=== PATIENT | female | born 1965 | race Caucasian/White ===

== ENCOUNTER 2020-10-06 07:17 | Outpatient (REF) | payer MEDICARE, MEDICAID, SELFPAY ==
[2020-10-06 09:10] LABS: Alanine Aminotransferase 46 U/L (0-31); Albumin Level 4.3 g/dL (3.5-5.0); Alkaline Phosphatase 88 U/L (39-117); Anion Gap 15 (12-20); Aspartate Amino Transferase 37 U/L (5-31); Bilirubin Total 0.7 mg/dL (0.0-1.0); Blood Urea Nitrogen 10 mg/dL (9-16); Calcium 9.8 mg/dL (8.4-10.2); Carbon Dioxide 28 mmol/L (22-29); Chloride 100 mmol/L (96-108); Cholesterol 244 mg/dL; Estimated Glomerular Filt Rate > 60; Glucose Fasting 125 mg/dL (60-99); HDL Cholesterol 41 mg/dL; LDL Cholesterol Calculated 157 mg/dl; Potassium 3.8 mmol/L (3.3-5.1); Sodium 139 mmol/L (135-145); Total Protein 7.7 g/dL (6.5-8.0); Triglycerides 231 mg/dL
[2020-10-09 21:42] LABS: Vitamin D 25-OH, D2 18 ng/mL; Vitamin D 25-OH, D3 9 ng/mL; Vitamin D 25-OH, Total 27 ng/mL (30-100)
== END 2020-10-06 07:18 | disposition home or self-care (01) ==
LOC: HO.LAB 07:17
PROVIDERS: PCP Internal Medicine; Visit Provider Internal Medicine
DX: I10 Essential (primary) hypertension (principal); E55.9 Vitamin D deficiency, unspecified
CPT/HCPCS: 36415; 80053; 80061; 82306

== ENCOUNTER 2020-10-16 10:01 | Outpatient (REF) | payer MEDICARE, MEDICAID, SELFPAY ==
--- NOTE | ~2020-10-16 | XR_ITS ---
EXAMINATION: XR SHOULDER, LEFT XR ELBOW, LEFT XR WRIST, LEFT CLINICAL INFORMATION: Pain. COMPARISON: None TECHNIQUE: Three-view left elbow, 3-view left wrist, and 4-view left shoulder. FINDINGS: LEFT SHOULDER: There is no evidence of acute fracture or dislocation of the left shoulder. No calcific tendinitis. Glenohumeral joint appears unremarkable. Acromioclavicular joint appears unremarkable. No widening of the coracoclavicular space is seen. LEFT ELBOW: 3 views of the left elbow do not demonstrate any evidence of acute fracture or dislocation. Joint space is maintained. No elbow effusion is seen. No destructive bony lesions. There is some soft tissue swelling seen overlying the olecranon. There is a small amount of calcification seen about the lateral epicondyle. LEFT WRIST: 3 views of the left wrist do not demonstrate any evidence of acute fracture or dislocation. There is some degenerative narrowing of the triscaphe joint as well some mild spurring of the 1st carpometacarpal joint. There is negative ulnar variance. XR/XR elbow LT 2V IMPRESSION: No significant left shoulder abnormality appreciated. Calcific lateral epicondylitis. No left elbow effusion. Question olecranon bursitis. Left wrist: Mild degenerative change as described above involving the triscaphe joint and 1st carpometacarpal joint. Negative ulnar variance.
--- NOTE | ~2020-10-16 | US_ITS ---
EXAMINATION: US VENOUS ULTRASOUND WITH DOPPLER LOWER EXTREMITY, BILATERAL CLINICAL INFORMATION: Fusion right ankle COMPARISON: None TECHNIQUE: Ultrasound of the deep veins is performed from the hip to the calf with compression sonography and color and pulse Doppler assessment. Spectral analysis with color-flow imaging is performed. FINDINGS: RIGHT: There is normal venous compression and respiratory variation and augmented flow. The visualized common femoral vein, superficial femoral vein, profunda femoral vein, popliteal vein, and the trifurcation region shows no evidence of deep venous thrombosis. There is no significant popliteal fossa cyst. LEFT: There is normal venous compression and respiratory variation and augmented flow. The visualized common femoral vein, superficial femoral vein, profunda femoral vein, popliteal vein, and the trifurcation region shows no evidence of deep venous thrombosis. There is no significant popliteal fossa cyst. There is small small left groin left lymph node visualized measuring 1.8 x 0.7 x 1.1 cm and appears benign If the patient's symptoms persist, followup ultrasound in 5 days 7 days might be of value to exclude proximal propagation from a non-visualized calf vein. US/US venous duplex LE BI IMPRESSION: No DVT demonstrated in the bilateral lower extremity.
--- NOTE | ~2020-10-16 | XR_ITS ---
EXAMINATION: XR SHOULDER, LEFT XR ELBOW, LEFT XR WRIST, LEFT CLINICAL INFORMATION: Pain. COMPARISON: None TECHNIQUE: Three-view left elbow, 3-view left wrist, and 4-view left shoulder. FINDINGS: LEFT SHOULDER: There is no evidence of acute fracture or dislocation of the left shoulder. No calcific tendinitis. Glenohumeral joint appears unremarkable. Acromioclavicular joint appears unremarkable. No widening of the coracoclavicular space is seen. LEFT ELBOW: 3 views of the left elbow do not demonstrate any evidence of acute fracture or dislocation. Joint space is maintained. No elbow effusion is seen. No destructive bony lesions. There is some soft tissue swelling seen overlying the olecranon. There is a small amount of calcification seen about the lateral epicondyle. LEFT WRIST: 3 views of the left wrist do not demonstrate any evidence of acute fracture or dislocation. There is some degenerative narrowing of the triscaphe joint as well some mild spurring of the 1st carpometacarpal joint. There is negative ulnar variance. XR/XR shoulder LT min 2V IMPRESSION: No significant left shoulder abnormality appreciated. Calcific lateral epicondylitis. No left elbow effusion. Question olecranon bursitis. Left wrist: Mild degenerative change as described above involving the triscaphe joint and 1st carpometacarpal joint. Negative ulnar variance.
--- NOTE | ~2020-10-16 | XR_ITS ---
EXAMINATION: XR SHOULDER, LEFT XR ELBOW, LEFT XR WRIST, LEFT CLINICAL INFORMATION: Pain. COMPARISON: None TECHNIQUE: Three-view left elbow, 3-view left wrist, and 4-view left shoulder. FINDINGS: LEFT SHOULDER: There is no evidence of acute fracture or dislocation of the left shoulder. No calcific tendinitis. Glenohumeral joint appears unremarkable. Acromioclavicular joint appears unremarkable. No widening of the coracoclavicular space is seen. LEFT ELBOW: 3 views of the left elbow do not demonstrate any evidence of acute fracture or dislocation. Joint space is maintained. No elbow effusion is seen. No destructive bony lesions. There is some soft tissue swelling seen overlying the olecranon. There is a small amount of calcification seen about the lateral epicondyle. LEFT WRIST: 3 views of the left wrist do not demonstrate any evidence of acute fracture or dislocation. There is some degenerative narrowing of the triscaphe joint as well some mild spurring of the 1st carpometacarpal joint. There is negative ulnar variance. XR/XR wrist LT 2V IMPRESSION: No significant left shoulder abnormality appreciated. Calcific lateral epicondylitis. No left elbow effusion. Question olecranon bursitis. Left wrist: Mild degenerative change as described above involving the triscaphe joint and 1st carpometacarpal joint. Negative ulnar variance.
== END 2020-10-16 10:02 | disposition home or self-care (01) ==
LOC: HO.US 10:01
PROVIDERS: PCP Internal Medicine; Visit Provider Nurse Practitioner Family
DX: M25.512 Pain in left shoulder (principal); M25.522 Pain in left elbow; M25.532 Pain in left wrist; M25.471 Effusion, right ankle; M25.472 Effusion, left ankle; M79.604 Pain in right leg; M79.605 Pain in left leg
CPT/HCPCS: 73030; 73070; 73100; 93970

== ENCOUNTER 2023-06-15 08:00 | Outpatient (REF) | payer MEDICARE, MEDICAID, SELFPAY ==
[2023-06-15 08:09] LABS: MANUAL DIFF FLAG NO
[2023-06-15 08:14] LABS: Basophils Absolute Auto 0.1 X10*3/uL (0.0-0.2); Basophils Percent Auto 1.3 % (0-2); Eosinophils Absolute Auto 0.2 X10*3/uL (0.0-0.4); Eosinophils Percent Auto 2.7 % (0-4); Hematocrit 47.3 % (37.0-47.0); Hemoglobin 16.6 g/dl (12.0-16.0); Imm Gran Abs Auto 0.04 X10*3/uL (0.00-0.03); Imm Gran Pct Auto 0.6 % (0.0-0.4); Lymphocytes Absolute Auto 2.7 X10*3/uL (1.2-4.9); Lymphocytes Percent Auto 39.1 % (20-40); Mean Corpuscular HGB Conc 35.1 g/dl (31.0-35.0); Mean Corpuscular Hemoglobin 32.6 pg (27.0-33.0); Mean Corpuscular Volume 92.9 fL (80.0-98.0); Mean Platelet Volume 10.9 fL (9.4-12.3); Monocytes Absolute Auto 0.5 X10*3/uL (0.1-1.2); Monocytes Percent Auto 7.7 % (2-11); Neutrophils Absolute Auto 3.3 x10*3/uL (2.0-8.3); Neutrophils Percent Auto 48.6 % (45-73); Platelet Count 255 X10*3/uL (160-400); Red Blood Count 5.09 X10*6/uL (4.20-5.50); Red Cell Distribution Width 12.3 % (11.0-16.0); White Blood Count 6.8 X10*3/uL (4.8-10.8)
[2023-06-15 09:12] LABS: Alanine Aminotransferase 275 U/L (0-31); Albumin Level 4.1 g/dL (3.5-5.0); Alkaline Phosphatase 137 U/L (39-117); Anion Gap 11 (12-20); Aspartate Amino Transferase 218 U/L (5-31); Bilirubin Total 0.9 mg/dL (0.0-1.0); Blood Urea Nitrogen 9 mg/dL (9-16); Calcium 10.1 mg/dL (8.4-10.2); Carbon Dioxide 32 mmol/L (22-29); Chloride 97 mmol/L (96-108); Cholesterol 286 mg/dL (<200); Estimated Glomerular Filt Rate > 60; Glucose Fasting 173 mg/dL (60-99); HDL Cholesterol 50 mg/dL (>40); LDL Cholesterol Calculated 197 mg/dL (<100); Potassium 3.3 mmol/L (3.3-5.1); Sodium 137 mmol/L (135-145); Total Protein 8.4 g/dL (6.5-8.0); Triglycerides 198 mg/dL (<150)
[2023-06-15 09:26] LABS: Thyroid Stimulating Hormone 1.59 uIU/mL (0.32-4.0)
== END 2023-06-15 08:01 | disposition home or self-care (01) ==
LOC: HO.LAB 08:00
PROVIDERS: PCP Internal Medicine; Visit Provider Internal Medicine
DX: E78.5 Hyperlipidemia, unspecified (principal); E55.9 Vitamin D deficiency, unspecified; E66.9 Obesity, unspecified; Z86.39 Personal history of other endocrine, nutritional and metabolic disease
CPT/HCPCS: 36415; 80053; 80061; 82306; 84443; 85025

== ENCOUNTER 2023-06-16 10:47 | Outpatient (AMB) | payer MEDICARE, MEDICAID, SELFPAY ==
[2023-06-16 10:49] VITALS: BP 148/92; BMI 38.8
--- NOTE | 2023-06-16 10:49 | A.OFFPC_ITS ---
Vital Signs 06/16/23 10:49 06/16/23 12:23 Height 5 ft 3 in Weight 219 lb BMI 38.8 BP 148/92 H 140/90 H Blood Pressure Location Lt brachial Lt brachial Position Sitting Sitting Intake Visit Reasons: physical exam, labs Intake Note: Patient here for a physical exam, labs, right hand pins and needle feeling, knee pain Motor Man Required: No Accompanied by: Self / Same As Patient Allergies acetaminophen [Percocet] Allergy (Intermediate, Verified 06/16/23 11:03) vomiting nabumetone Allergy (Intermediate, Verified 06/16/23 11:03) shortness of breath oxycodone [Percocet] Allergy (Intermediate, Verified 06/16/23 11:03) vomiting Medication List - Last Reconciled 06/16/23 by Nelia Schmitt MD atenolol-chlorthalidone 50-25 mg 1 tab PO DAILY 90 days cholecalciferol (vitamin D3) 25 mcg PO DAILY 90 days Tobacco use date assessed: 06/16/23 Dental Screening Dental Screen Date: 06/16/23 Did you have a dental visit in the last 12 months?: Yes Did you have a dental problem in the last 6 months where you did not have access to dental care?: No Was dental information given to patient?: Patient has dentist HPI HPI Comments History of Present Illness Details This is a 57-year-old female with mild recurrent major depression that comes for her physical exam. She had labs done recently and has an elevated hemoglobin with transaminitis in which ultrasound will be order as well as Gastroenterology referral. Has elevated cholesterol and her fasting blood glucose is over 126 with an A1c of 8% making the diagnosis of diabetes mellitus. I will start her on metformin. I will hold to give statins as of now due to transaminitis. She denies any jaundice, acholia or coluria. She is obese with a BMI of 38.8 but declines the use of protein shakes to lose weight. Last mammogram was over a year ago. Last Pap smear was over 4 years ago. Had Cologuard 2020 and I will order another Cologuard 2023. She has counseling for her mild recurrent major depression and declines any medications as of now. [facility] Medical History (Updated 06/16/23 @ 12:28 by Nelia Schmitt MD) Impaired glucose tolerance Mild recurrent major depression Class 2 obesity with body mass index (BMI) of 38.0 to 38.9 in adult Leg pain, bilateral Left wrist pain Left shoulder pain Left elbow pain Swollen ankles Right knee pain Hypovitaminosis D Essential hypertension Surgical History History of hysteroscopy History of laparoscopic cholecystectomy Family History Father Medical history unknown Mother Diabetes Hypertension Chronic mental illness Mental health disorder Maternal Grandmother Throat cancer Maternal Aunt Chronic mental illness Mental health disorder Family/Other Chronic mental illness Mental health disorder Social History Housing: House Alcohol intake: current Alcohol intake frequency: holidays/special occasions only Patient Tobacco Use Status: Never used Tobacco e-Cigarette/Vaping Use: Never Used Second Hand Smoke Exposure: No service: No Current occupational status: disabled Cognitive needs: No Hearing needs: No Vision needs: No Questionnaire PHQ-9 Over the last 2 weeks, how often have you been bothered by any of the following problems? 1. Little interest or pleasure in doing things: more than half the days 2. Feeling down, depressed, or hopeless: more than half the days 3. Trouble falling or staying asleep, or sleeping too much: nearly every day 4. Feeling tired or having little energy: more than half the days 5. Poor appetite or overeating: several days 6. Feeling bad about yourself - or that you are a failure or have let yourself or your family down: several days 7. Trouble concentrating on things, such as reading the newspaper or watching television: several days 8. Moving or speaking so slowly that other people could have noticed. Or the opposite - being so fidgety or restless that you have been moving around a lot more than usual: more than half the days 9. Thoughts that you would be better off or of hurting yourself in some way: not at all Total score: 14 Depression Screening Interpretation: Positive (no suicidal thoughts) Depression Screening Follow-up: Existing condition and Community Mental Health Worker F/U Depression Screening Done: Yes Source: Developed by Drs. Guanakito Lamar, Rachel Feliberto Cohen and colleagues, with an educational rosemary from [employer]. Thrive Questionnaire Date Thrive assessed: 06/16/23 I am a: Patient What is your living situation today?: I have a steady place to live Within the past 12 months, did the food you bought not last and you didn't have the money to get more?: Never true Within the past 12 months, did you worry whether your food would run out before you got money to buy more?: Never true Do you have trouble paying for medicines?: No Do you have trouble getting transportation to medical appointments?: No Do you have trouble paying your heating and electricity bill?: No Do you have trouble taking care of your child, family member or friend?: No Do you have trouble with day-to-day activities such as bathing, preparing meals, shopping, managing finances, etc.?: No Are you currently unemployed and looking for a job?: No Are you interested in more education?: No Please select the resources that you would like help with: None Currently or been in a relationship where the following occur: no concerns reported THRIVE Score: 0 AUDIT C Alcohol Use Questionnaire (AUDIT-C) 1. How often do you have a drink containing alcohol?: Never Total Score: 0 Score Reviewed/Action Taken: No MARY-7 AMB Questionnaire MARY-7 Date MARY - 7 assessed: 06/16/23 Feeling nervous, anxious, or on edge: 2 = More than half the days Not being able to stop or control worryin = Several days Worrying too much about different things: 2 = More than half the days Trouble relaxin = Several days Being so restless that it is hard to sit still: 0 = Not at all Becoming easily annoyed or irritable: 2 = More than half the days Feeling afraid as if something awful might happen: 0 = Not at all Total MARY-7 score (0-4 normal; 5-9 mild; 10-14 moderate; 15-21 severe): 8 Source: Developed by Drs. Guanakito Lamar, Feliberto Roper and colleagues, with an educational rosemary from [employer]. MARY-7 Assessment Billing MARY-7 Assessment Tool: MARY-7 Assessment 71457 Review of Systems Const All systems reviewed & are unremarkable except as noted in HPI and below Eyes Reports no additional complaints, Denies change in vision and Denies other visual disturbances Card Denies chest pain at rest, Denies chest pain with activity, Denies edema, Denies irregular heart rhythm, Denies claudication, Denies dyspnea, Denies dyspnea on exertion, Denies orthopnea, Denies paroxysmal nocturnal dyspnea and Denies slow heart rate Resp Denies cough, Denies dyspnea and Denies dyspnea on exertion GI Denies abdominal pain, Denies change in bowel habits, Denies excessive flatus, Denies nausea and Denies vomiting Denies urinary incontinence, Denies urinary hesitancy and Denies urinary urgency Musc Denies abnormal gait, Denies atrophy, Denies deformity and Denies limited range of motion Skin/Breast Denies bleeding lesions, Denies changing lesions and Denies rash Neuro Denies abnormal gait, Denies behavioral changes, Denies confusion and Denies lack of coordination Psych Denies behavioral changes and Denies confusion Physical exam (Primary Care) Vital Signs: Last Vital Signs BP 148/92 H 06/16/23 10:49 BMI result Body Mass Index 38.8 Tobacco/Smoking Status: Tobacco use Status Tobacco use date assessed 06/16/23 06/16/23 10:55 Patient Tobacco Use Status Never used Tobacco 06/16/23 10:55 e-Cigarette/Vaping Use Never Used 06/16/23 10:55 PHQ-9: PHQ-9 Score PHQ-9: Total score 14 06/16/23 11:10 Depression Screening Interpretation: Positive (no suicidal thoughts) Depression Screening Follow-up: Existing condition and Community Mental Health Worker F/U Thrive Assessment: Date of Thrive Assessment Date Thrive assessed 06/16/23 06/16/23 11:11 Currently or been in a relationship where the following occur: no concerns reported Const General: No confusion Orientation/consciousness: patient oriented x3 and No confusion HENMT Head: Yes normal to inspection, Yes normocephalic and Yes atraumatic Ears: external ears normal Eyes General: appearance normal, both eyes and all related structures Eyelids: Yes eyelids normal Conjunctivae: conjunctivae normal Neck Neck: Yes normal visual inspection and Yes supple Resp Effort & Inspection: normal respiratory effort Auscultation: clear to auscultation bilaterally Cardio Jugular venous distension: no JVD Rate: regular rate Rhythm: regular rhythm Heart sounds: S1 normal heart sound present and S2 normal heart sound present GI Inspection: Yes normal to inspection Palpation (GI): Soft to palpation and nontender Auscultation: normal bowel sounds Skin General skin exam: no rashes or lesions noted Neuro General: patient oriented x3, no focal motor deficits and No confusion Extrem General: Yes full ROM Psych Appearance: grossly normal Results AMB Hemoglobin A1c AMB Hemoglobin A1c 8.0 % Last Edit by SHOAIB De Santiago on 06/16/23 11:2 0 Results Reviewed Results Reviewed: Laboratory Last Values Hgb A1c (Clinic) 8.0 % (4.0-6.0) H 06/16/23 11:14 Assessment and Plan Assessment & Plan (1) Physical exam: Code(s): Z00.00 - Encounter for general adult medical examination without abnormal findings Plan: Repeat in a year. (2) Diabetes mellitus: Code(s): E11.9 - Type 2 diabetes mellitus without complications Qualifiers: Diabetes mellitus type: type 2 Diabetes mellitus mcfp insulin use: without termite control servicer use Diabetes mellitus complication status: with hyperglycemia Qualified Code(s): E11.65 - Type 2 diabetes mellitus with hyperglycemia Plan: Start metformin. A1c goal is equal or less than 7%. (3) Elevated hemoglobin: Code(s): D58.2 - Other hemoglobinopathies Plan: Repeat CBC. (4) Mild recurrent major depression: Code(s): F33.0 - Major depressive disorder, recurrent, mild Plan: Continue counseling. Orders: Orders US abdomen comp w elastography Today R74.01 - Elevation of levels of liver transaminase levels AMB Hemoglobin A1c Today R73.02 - Impaired glucose tolerance (oral) NE nerve conduction velocity Today R20.2 - Paresthesia of skin IRON PROFILE 1 Week D58.2 - Other hemoglobinopathies Lipid Panel 4 Months E78.5 - Hyperlipidemia, unspecified Comprehensive [place]. Panel Fast 4 Months R73.02 - Impaired glucose tolerance (oral) DNA Analysis Hemochromatosis Today D58.2 - Other hemoglobinopathies Liver Panel Today R74.01 - Elevation of levels of liver transaminase levels Referrals Gastroenterology Referral R74.01 - Elevation of levels of liver transaminase levels Medications: New metformin 500 mg PO BID 90 days 180 tabs 1RF E11.9 - Type 2 diabetes mellitus without complications Coding Level of Care Code Est Pt Prev Care 40-64y(32754) Diagnoses Physical exam Z00.00 Type 2 diabetes mellitus with hyperglycemia, without long-term current use of insulin E11.65 Diabetes mellitus type: type 2 Diabetes mellitus termite control servicer insulin use: without termite control servicer use Diabetes mellitus complication status: with hyperglycemia Elevated hemoglobin D58.2 Mild recurrent major depression F33.0 Additional Codes MARY-7 Assessment Billing - MARY-7 Assessment Tool: MARY-7 Assessment [id number] ([id number]) Time Spent (min) 35
[2023-06-16 12:23] VITALS: BP 140/90
== END 2023-06-16 11:24 | disposition home or self-care (01) ==
PROVIDERS: PCP Internal Medicine; Visit Provider Internal Medicine
DX: Z00.00 Encounter for general adult medical examination without abnormal findings (principal); E11.65 Type 2 diabetes mellitus with hyperglycemia; D58.2 Other hemoglobinopathies; F33.0 Major depressive disorder, recurrent, mild; R73.02 Impaired glucose tolerance (oral)
CPT/HCPCS: 83036; 99396

== ENCOUNTER 2023-07-11 09:00 | Outpatient (REF) | payer MEDICARE, MEDICAID, SELFPAY ==
--- NOTE | ~2023-07-11 | US_ITS ---
EXAMINATION: US COMPLETE ABDOMEN WITH LIVER ELASTOGRAPHY CLINICAL INFORMATION: Evaluation of liver transaminase levels. COMPARISON: None available. TECHNIQUE: Real-time imaging of the abdominal viscera. Noninvasive ultrasound liver fibrosis assessment is performed using Isi ElastPQ point quantification shear wave elastography (2D-SWE) with a C5-2 MHz transducer. Multiple elastography samples are obtained. FINDINGS: PANCREAS: Normal. The visualized pancreatic head and body are normal in appearance. The remainder of the pancreas is obscured from visualization by the overlying bowel gas. ABDOMINAL AORTA: The proximal, middle, and distal aortic segments are normal in caliber. INFERIOR VENA CAVA: Visualized portions are normal. LIVER: The liver demonstrates normal size, contour and increased echogenicity. No focal lesion or intrahepatic biliary duct dilatation. The right lobe measures 16.8 cm in length. The left lobe measures 13.1 cm in length. Portal flow is hepatopedal. Shear wave liver elastography median stiffness is 2.40 m/s (reference: normal median stiffness is 1.3 m/s or less). IQR/median stiffness to assess sampling precision is 0.15 (reference: good quality data set is IQR/median stiffness of 0.15 or less). GALLBLADDER: The gallbladder is surgically absent. COMMON BILE DUCT: Normal in caliber measuring 0.2/0.5 cm in diameter. RIGHT KIDNEY: Normal. No hydronephrosis. No renal calculi or focal parenchymal lesions. The kidney measures 11.8 cm in maximum dimension. LEFT KIDNEY: Normal. No hydronephrosis. No renal calculi or focal parenchymal lesions. The kidney measures 11.4 cm in maximum dimension. SPLEEN: Normal. The spleen measures 9.2 cm in maximum dimension. FREE FLUID: None. US/US abdomen comp w elastography IMPRESSION: 1. Mild hepatic steatosis without focal lesion. 2. Liver elastography: Median liver stiffness measures 2.40 cm suggestive of CSPH. . REFERENCE: Society of Radiologists in Ultrasound Liver Stiffness Thresholds (2020): LIVER STIFFNESS THRESHOLDS: *Liver Stiffness equal or less than 1.3 m/s: High probability of being normal. *Liver Stiffness less than 1.7 m/s: In the absence of other known clinical signs, rules out compensated advanced chronic liver disease. *Liver Stiffness 1.7-2.1 m/s: Suggestive of compensated advanced chronic liver disease but need further test for confirmation. *Liver Stiffness over 2.1 m/s: Rules in compensated advanced chronic liver disease. *Liver Stiffness over 2.4 m/s: Suggestive of clinically significant portal hypertension. QUALITY OF DATA SET: *IQR/Median value equal or less than 0.15 implies a quality data set. *IQR/Median value over 0.15 implies a poor quality data set. SIGNIFICANT CHANGE FROM PRIOR EXAM: Significant change if liver stiffness measurement is 10% or greater from prior exam. OTHER CONSIDERATIONS: The stage of liver fibrosis may be overestimated in the setting of acute hepatitis, liver inflammation, elevated liver function tests, hepatic vascular congestion, obstructive cholestasis, non-fasting state, and infiltrative diseases such as amyloidosis and lymphoma. In some patients with NAFLD, the liver stiffness thresholds for compensated advanced chronic liver disease may be lower. In causes other than viral hepatitis and NAFLD, liver stiffness thresholds are not well established.
== END 2023-07-11 09:01 | disposition home or self-care (01) ==
LOC: HO.US 09:00
PROVIDERS: PCP Internal Medicine; Visit Provider Internal Medicine
DX: R74.01 Elevation of levels of liver transaminase levels (principal)
CPT/HCPCS: 76700; 76981

== ENCOUNTER 2023-09-26 11:27 | Outpatient (AMB) | payer MEDICARE, MEDICAID, SELFPAY ==
--- NOTE | 2023-09-26 11:29 | A.OFFVIS_ITS ---
Vital Signs 09/26/23 11:30 Height 5 ft 3 in Weight 196 lb 3.382 oz BMI 34.8 BP 143/73 H Blood Pressure Location Lt brachial Position Sitting Pulse 69 Intake Visit Reasons: Elevated LFTs Intake Note: Lora presents in the office as a new patient for elevated LFTs. CC: She states that she has a lot of loose stools and not sure if it is her BP medication that causes that due to it being a diuretic. She states when she drinks lots of water it gets better. She wants to know if markings on her body are related to her liver issues - she states that she has drastically changed her diet since seeing her dr. Allergies acetaminophen [Percocet] Allergy (Intermediate, Verified 09/26/23 11:30) vomiting nabumetone Allergy (Intermediate, Verified 09/26/23 11:30) shortness of breath oxycodone [Percocet] Allergy (Intermediate, Verified 09/26/23 11:30) vomiting HPI Comments Details: This is a 58 y.o F with PMH of HTN, DM, obesity, HLD, who is here for elevated LFTs. Pt reports no GI issues to include abd pain, N,V, D. Pt reports poor dietary choices during the pandemic years. Since finding out about elevated LFts since May 2023, has been working on diet as well as weight. Lost 23# in the past 3 months. From chart review has had abnormal LFTs since 2019 but up x10UNL on most recent check. US Abd with elasto reviewed and suspicious for advanced fibrosis. Pt does nto drink. No current or prev drug use. No fam hx of liver diseases. No recent med changes in past 6 months. [facility] Medical History Impaired glucose tolerance Mild recurrent major depression Class 2 obesity with body mass index (BMI) of 38.0 to 38.9 in adult Leg pain, bilateral Left wrist pain Left shoulder pain Left elbow pain Swollen ankles Right knee pain Hypovitaminosis D Essential hypertension Surgical History History of hysteroscopy History of laparoscopic cholecystectomy Family History Father Medical history unknown Mother Diabetes Hypertension Chronic mental illness Mental health disorder Maternal Grandmother Throat cancer Maternal Aunt Chronic mental illness Mental health disorder Family/Other Chronic mental illness Mental health disorder Social History Housing: House Alcohol intake: current Alcohol intake frequency: holidays/special occasions only Patient Tobacco Use Status: Never used Tobacco e-Cigarette/Vaping Use: Never Used Second Hand Smoke Exposure: No service: No Current occupational status: disabled Cognitive needs: No Hearing needs: No Vision needs: No Review of Systems Const All systems reviewed & are unremarkable except as noted in HPI and below Physical Exam Vital Signs: Last Vital Signs Pulse 69 09/26/23 11:30 BP 143/73 H 09/26/23 11:30 BMI result Body Mass Index 34.8 No apparent distress Nonicteric Abdomen soft, nondistended Alert and oriented x3, normal gait Assessment & Plan Assessment & Plan (1) Transaminitis: Code(s): R74.01 - Elevation of levels of liver transaminase levels Category: Medical (2) Class 2 obesity with body mass index (BMI) of 39.0 to 39.9 in adult: Code(s): E66.9 - Obesity, unspecified; Z68.39 - Body mass index [BMI] 39.0-39.9, adult Category: Medical (3) Diabetes mellitus: Code(s): E11.9 - Type 2 diabetes mellitus without complications Category: Medical Qualifiers: Diabetes mellitus type: type 2 Diabetes mellitus chcf insulin use: without 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 Workup for chronic liver disease ordered as below. Management will be based on the results. Likely has some degree of MASLD and she is already working on her weight as well as diabetes control in collaboration with her PCP. follow-up in 3 months Orders: Orders Alpha 1 Anti-trypsin Today R74.01 - Elevation of levels of liver transaminase levels SHILPA Reflex Titer and Pattern Today R74.01 - Elevation of levels of liver transaminase levels Liver Kidney Microsomal Ab Today R74.01 - Elevation of levels of liver transaminase levels Smooth Muscle Antibody Today R74.01 - Elevation of levels of liver transaminase levels Transglutaminase IgA Today R74.01 - Elevation of levels of liver transaminase levels Liver Panel Today R74.01 - Elevation of levels of liver transaminase levels Hepatitis B Surface Antigen Today R74.01 - Elevation of levels of liver transaminase levels Ceruloplasmin Today R74.01 - Elevation of levels of liver transaminase levels Ferritin Today R74.01 - Elevation of levels of liver transaminase levels Immunoglobulin A Today R74.01 - Elevation of levels of liver transaminase levels Immunoglobulin G Today R74.01 - Elevation of levels of liver transaminase levels IRON PROFILE Today R74.01 - Elevation of levels of liver transaminase levels Mitochondrial Antibody Today R74.01 - Elevation of levels of liver transaminase levels Hepatitis A IgG Today R74.01 - Elevation of levels of liver transaminase levels Hepatitis B Core Antibody Today R74.01 - Elevation of levels of liver transaminase levels Hepatitis B Surface Antibody Today R74.01 - Elevation of levels of liver transaminase levels Hepatitis C Antibody Today R74.01 - Elevation of levels of liver transaminase levels Medications: Discontinued metformin Discontinued Reason: Patient Completed Course 500 mg PO BID 90 days 180 tabs 1RF E11.9 - Type 2 diabetes mellitus without complications Coding Level of Care Code New Pt Level 4 (81073) Diagnoses Transaminitis R74.01 Class 2 obesity with body mass index (BMI) of 39.0 to 39.9 in adult E66.9; Z68.39 Type 2 diabetes mellitus with hyperglycemia, without long-term current use of insulin E11.65 Diabetes mellitus type: type 2 Diabetes mellitus chcf insulin use: without chcf use Diabetes mellitus complication status: with hyperglycemia
[2023-09-26 11:30] VITALS: BP 143/73; PULSE 69; BMI 34.8
== END 2023-09-26 12:03 | disposition home or self-care (01) ==
PROVIDERS: PCP Internal Medicine; Visit Provider Internal Medicine
DX: R74.01 Elevation of levels of liver transaminase levels (principal); E66.9 Obesity, unspecified; Z68.39 Body mass index [BMI] 39.0-39.9, adult; E11.65 Type 2 diabetes mellitus with hyperglycemia
CPT/HCPCS: 99204

== ENCOUNTER → 2023-09-26 11:27 | Outpatient (BNVA) | payer MEDICARE, MEDICAID, SELFPAY | PROVIDERS: PCP Internal Medicine; Visit Provider Internal Medicine | DX: R74.01 Elevation of levels of liver transaminase levels (principal); E11.65 Type 2 diabetes mellitus with hyperglycemia; E66.9 Obesity, unspecified; Z68.34 Body mass index [BMI] 34.0-34.9, adult | CPT/HCPCS: 99202 ==

== ENCOUNTER 2023-09-28 08:07 | Outpatient (REF) | payer MEDICARE, MEDICAID, SELFPAY | END 2023-09-28 08:08 | disposition home or self-care (01) | LOC: HO.MAMMO 08:07 | PROVIDERS: PCP Internal Medicine; Visit Provider Internal Medicine | DX: Z12.31 Encounter for screening mammogram for malignant neoplasm of breast (principal) | CPT/HCPCS: 77063; 77067 ==

== ENCOUNTER → 2023-09-28 08:15 | Outpatient (BNV) | payer MEDICARE, MEDICAID, SELFPAY | PROVIDERS: PCP Internal Medicine; Visit Provider Radiology Diagnostic Radiology | DX: Z12.31 Encounter for screening mammogram for malignant neoplasm of breast (principal) | CPT/HCPCS: 77063; 77067 ==

== ENCOUNTER 2023-10-24 10:05 | Outpatient (AMB) | payer MEDICARE, MEDICAID, SELFPAY ==
[2023-10-24 10:16] VITALS: BP 126/68; PULSE 57; O2SAT 97; BMI 34.0
--- NOTE | 2023-10-24 10:16 | A.OFFPC_ITS ---
Vital Signs 10/24/23 10:16 Height 5 ft 3 in Weight 192 lb BMI 34.0 BP 126/68 Blood Pressure Location Lt brachial Position Sitting Pulse 57 Pulse Source Pulse Oximeter Pulse Oximetry (%) 97 Oxygen Delivery Method Room Air Intake Visit Reasons: bp Director Of Retention Required: No Accompanied by: Self / Same As Patient Allergies acetaminophen [Percocet] Allergy (Intermediate, Verified 10/24/23 10:46) vomiting nabumetone Allergy (Intermediate, Verified 10/24/23 10:46) shortness of breath oxycodone [Percocet] Allergy (Intermediate, Verified 10/24/23 10:46) vomiting metformin Adverse Reaction (Intermediate, Uncoded 10/24/23 10:49) abdominal pain, diarrhea Medication List - Last Reconciled 10/24/23 by Nelia Schmitt MD atenolol-chlorthalidone 50-25 mg 1 tab PO DAILY 90 days blood sugar diagnostic (FreeStyle Lite Strips) Use 1 test strip once per day blood-glucose meter (FreeStyle Lite Meter kit) As directed cholecalciferol (vitamin D3) 25 mcg PO DAILY 90 days lancets (FreeStyle Lancets) As directed once per day Tobacco use date assessed: 06/16/23 Dental Screening Dental Screen Date: 06/16/23 HPI HPI Comments History of Present Illness Details This is a 58-year-old female with diabetes mellitus type 2, hypertension, transaminitis and mild recurrent major depression. A1c within goal and she has been doing a strict low-carbohydrate diet and exercise. She use metformin but give her abdominal discomfort and diarrhea and had to discontinue it. Blood pressure stable. She has transaminitis follow by Gastroenterology. Depression is in remission. She also has hyperlipidemia from the last lipid panel and this will be repeated. She is aware her LDL goal should be less than 70. [facility] Medical History (Updated 10/24/23 @ 12:28 by Nelia Schmitt MD) Impaired glucose tolerance Mild recurrent major depression Class 2 obesity with body mass index (BMI) of 38.0 to 38.9 in adult Leg pain, bilateral Left wrist pain Left shoulder pain Left elbow pain Swollen ankles Right knee pain Hypovitaminosis D Essential hypertension Surgical History History of hysteroscopy History of laparoscopic cholecystectomy Family History Father Medical history unknown Mother Diabetes Hypertension Chronic mental illness Mental health disorder Maternal Grandmother Throat cancer Maternal Aunt Chronic mental illness Mental health disorder Family/Other Chronic mental illness Mental health disorder Social History Housing: House Alcohol intake: current Alcohol intake frequency: holidays/special occasions only Patient Tobacco Use Status: Never used Tobacco e-Cigarette/Vaping Use: Never Used Second Hand Smoke Exposure: No service: No Current occupational status: disabled Cognitive needs: No Hearing needs: No Vision needs: No Questionnaire Thrive Questionnaire Date Thrive assessed: 06/16/23 AUDIT C Alcohol Use Questionnaire (AUDIT-C) 1. How often do you have a drink containing alcohol?: Never Total Score: 0 Score Reviewed/Action Taken: No MARY-7 AMB Questionnaire MARY-7 Date MARY - 7 assessed: 06/16/23 Source: Developed by Drs. Guanakito Lamar, Rachel Corrales, Feliberto Owusu and colleagues, with an educational rosemary from [employer]. Review of Systems Const All systems reviewed & are unremarkable except as noted in HPI and below Card Denies chest pain at rest, Denies chest pain with activity, Denies edema, Denies irregular heart rhythm, Denies claudication, Denies dyspnea, Denies dyspnea on exertion, Denies orthopnea, Denies paroxysmal nocturnal dyspnea and Denies slow heart rate Resp Denies cough, Denies dyspnea and Denies dyspnea on exertion Neuro Denies behavioral changes and Denies lack of coordination Psych Denies behavioral changes Physical exam (Primary Care) Vital Signs: Last Vital Signs Pulse 57 10/24/23 10:16 BP 126/68 10/24/23 10:16 Pulse Ox 97 10/24/23 10:16 Oxygen Delivery Method Room Air 10/24/23 10:16 BMI result Body Mass Index 34.0 BMI Assessment/Plan discussion: High BMI High, discussed plan: lifestyle, weight reduction, dietary and physical activity Tobacco/Smoking Status: Tobacco use Status Tobacco use date assessed 06/16/23 10/24/23 10:17 Patient Tobacco Use Status Never used Tobacco 10/24/23 10:17 e-Cigarette/Vaping Use Never Used 10/24/23 10:17 Thrive Assessment: Date of Thrive Assessment Date Thrive assessed 06/16/23 10/24/23 10:17 Resp Effort & Inspection: normal respiratory effort Auscultation: clear to auscultation bilaterally Cardio Jugular venous distension: no JVD Rate: regular rate Rhythm: regular rhythm Heart sounds: S1 normal heart sound present and S2 normal heart sound present Extrem General: Yes full ROM Results AMB Hemoglobin A1c AMB Hemoglobin A1c 5.6 % Last Edit by SHOAIB June on 10/24/23 10:27 Results Reviewed Results Reviewed: Laboratory Last Values Hgb A1c (Clinic) 5.6 % (4.0-6.0) 10/24/23 09:58 Assessment and Plan Assessment & Plan (1) Diabetes mellitus: Code(s): E11.9 - Type 2 diabetes mellitus without complications Qualifiers: Diabetes mellitus type: type 2 Diabetes mellitus skilled nursing insulin use: without skilled nursing use Diabetes mellitus complication status: with hyperglyc emia Qualified Code(s): E11.65 - Type 2 diabetes mellitus with hyperglycemia Plan: Continue diet and exercise. A1c goal is equal or less than 7%. (2) Mild recurrent major depression: Code(s): F33.0 - Major depressive disorder, recurrent, mild Plan: In remission. (3) Transaminitis: Code(s): R74.01 - Elevation of levels of liver transaminase levels Plan: Follow-up with Gastroenterology. (4) Essential hypertension: Code(s): I10 - Essential (primary) hypertension Plan: Continue atenolol-chlorthalidone. Blood pressure goal is equal or less than 130/80. (5) Hyperlipidemia LDL goal <70: Code(s): E78.5 - Hyperlipidemia, unspecified Plan: Repeat lipid panel. LDL goal is less than 70. Orders: Orders AMB Hemoglobin A1c Today E11.65 - Type 2 diabetes mellitus with hyperglycemia Microalbumin, Random (w Creat) Today E11.9 - Type 2 diabetes mellitus without complications Vitamin D 25-OH Total Today E55.9 - Vitamin D deficiency, unspecified Lipid Panel Today E78.5 - Hyperlipidemia, unspecified Comprehensive [place]. 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
== END 2023-10-24 10:55 | disposition home or self-care (01) ==
PROVIDERS: PCP Internal Medicine; Visit Provider Internal Medicine
DX: E11.65 Type 2 diabetes mellitus with hyperglycemia (principal); F33.0 Major depressive disorder, recurrent, mild; R74.01 Elevation of levels of liver transaminase levels; I10 Essential (primary) hypertension; E78.5 Hyperlipidemia, unspecified
CPT/HCPCS: 83036; 99214; G2211

== ENCOUNTER 2024-06-21 07:07 | Outpatient (REF) | payer MEDICARE, MEDICAID, SELFPAY ==
--- OUTSIDE RECORDS SUMMARY | 2024-06-21 07:11 | XMS_ITS | Encounter Summary ---
Author Organization [facility] Address [address] [place] [address] Care Team Providers Care Accounts Receivable Supervisor Name Role Phone Unavailable Primary Care Provider Unavailabl e Reason for Visit * Reason Comments Dental Hygiene/ Preventive Recall Encounter Details Date Type Department Care Team (Late st Contact Info) Description 06/14/2024 9:00 AM EST Office Visit [facility] [address] [place] [address] Charlette Martinez [address] [place] [address] Encounter for dental examination (Primary Dx) Social History Tobacco Use Types Packs/Day Years Used Date Smoking Tobacco: Never Passive Smoke Exposure: Never Smokeless Tobacco: Never Social Connections Answer Date Recorded Connectedness 0 01/04/2022 Financial Resource Strain Answer Date R ecorded Financial Resource Strain 0 2021 Stress Answer Date Recorded Stress 0 01/04/2022 Physical Activity Answer Date Recorded Physical Activity 0 01/04/2022 Food Insecurity Answer Date Recorded Food 0 01/04/2022 Transportation Needs Answer Date Record ed Transportation 0 01/04/2022 Housing Stability Answer Date Recorded Housing 0 01/04/2022 Safety and Environment Answer Date Sheldon rded Safety 0 01/04/2022 Utilities Answer Date Recorded Utilities 0 01/04/2022 Employment Answer Date Recorded Stress 0 01/04/2022 Comments Unknown Sex and Gender Information Value Date Recorded Sex Assigned at Not on file Legal Sex Female 6:57 AM PST Gender Identity Not on file Sexual Orientation Straight 10/12/2022 6: 29 PM PDT documented as of this encounter Last Filed Vital Signs Vital Sign Reading Time Taken Comments Blood Pressure 110/75 06/14/2024 3:26 PM EST Pulse 63 06/14/2024 3:26 PM EST Temperature - - Respiratory Rate - - Oxygen Saturation - - Inhaled Oxygen Concentration - - Weight - - Height - - Body Mass Index - - documented in this encounter Progress Notes * Charlette Martinez - 06/14/2024 3:27 PM EST Prophy Subjective Lora Khalil, 58 year old female, presents alone for [employer]. Luster Applicator: No Chief Complaint Patient presents with Dental Hygiene/ Preventive Recall Objective RMHx: Yes Vitals: Vitals: 06/14/24 1526 BP: 110/75 Pulse: 63 BP Site: Left Arm BP Position: Sitting BP Cuff Size: Regular Adult Pain Score: 0 - No pain Assessment EOE/IOE/Oral Cancer Screen: WNL Oral Hygiene: Fair Home Care: Toothbrush 1 x per day, Floss 0 x per day Fluoride exposure: toothpaste Plaque: Generalized Moderate Calculus: None Gingival Description: Erythematous Inflammation: None Recession: None Bone Loss: None Staining: None PSR: Yes Periodontal Screening Full Perio Charting completed: Yes Dx: Z01.20 Encounter for dental examination (primary encounter diagnosis) DH Dx Details: DR CHAN EXAM Plan RECALL Informed Consent/PARQ (Procedure, Alternatives, Risks, Questions): Patient confirms informed consent using PARQ. Dental procedures in this visit D9450 - CASE PRESENTATION SUBS DTL & EXTENSIVE TX PLN (Completed) Service provider: Charlette Martinez Billing provider: Maddie Gonzales DDS TX993 - ORAL CANCER SCREENING (Completed) Service provider: Charlette Martinez Billjake provider: Maddie Gonzales DDS D1330 - ORAL HYGIENE INSTRUCTIONS (Completed) Service provider: Charlette Martinez Billjake provider: Madide Gonzales DDS D1310 - NUTRITIONAL COUNSELING CONTROL OF DENTAL DISEASE (Completed) Service provider: Charlette Martinez Billing provider: Maddie Gonzales DDS D0603 - CARIES RISK ASSESSMENT & DOC FINDING HIGH RISK (Completed) Service provider: Charlette Martinez Billing provider: Maddie Gonzales DDS D0274 - BITEWINGS - FOUR RADIOGRAPHIC IMAGES (Completed) Service provider: Charlette Martinez Billing provider: Maddie Gonzlaes DDS D0180 - COMP PERIODONTAL EVALUATION - NEW/EST PATIENT (Completed) Service provider: Charlette Martinez Billing provider: Maddie Gonzales DDS D1110 - PROPHYLAXIS - ADULT (Completed) Service provider: Charlette Martinez Billing provider: Maddie Gonzales DDS D9993 - DENTAL CASE MANAGEMENT - MOTIVATIONAL INTV (Completed) Service provider: Charlette Martinez Billing provider: Maddie Gonzales DDS D0120 - PERIODIC ORAL EVALUATION ESTABLISHED PATIENT (Completed) Service provider: Charlette Martinez Billing provider: Maddie Gonzales DDS Prophstanislaw completed with ultrasonic indoor sports centre manager OHI & Nutrition counseling provided, discussed: Gingivitis Post-Op Information Given: verbal Referral: No orders of the following type(s) were placed in this encounter: Referral. Rx: No orders of the defined types were placed in this encounter. Behavior: Excellent NV: Recall documented in this encounter Miscellaneous Notes * Patient Instructions - Charlette Martinez - 06/14/2024 9:35 AM EST If you are not able to keep your appointment please call 24-48 hours before your appointment to cancel or reschedule. documented in this encounter Plan of Treatment Upcoming Encounters Date Type Department Care Team (Late st Contact Info) Description 12/13/2024 9:00 AM EDT Office Visit [facility] [address] [place] [phone] Charlette Martinez [address] [place] [address] Scheduled Orders Name Type Priority Associated Diagnoses Order Schedule INTRAORAL - COMP SERIES OF RADIOGRAPHIC IMAGES Dental Procedures Routine 1 Occurren nelida starting 06/14/2024 PANORAMIC RADIOGRAPHIC IMAGE Dental Procedures Routine 1 Occurrenc es starting 06/14/2024 documented as of this encounter Procedures Procedure Name Priority Date/Time Associated Diagnosis Comments ORAL CANCER SCREENING Routine 06/14/2024 9:00 AM EST Encounter for dental examination DENTAL CASE MANAGEMENT - MOTIVATIONAL INTV Routine 06/14/2024 9:00 AM EST Encounter for dental examination CARIES RISK ASSESSMENT & DOC FINDING HIGH RISK Routine 06/14/2024 9:00 AM EST Encounter for dental examination CASE PRESENTATION SUBS DTL & EXTENSIVE TX PLN Routine 06/14/2024 9:00 AM EST Encounter for dental examination COMP PERIODONTAL EVALUATION - NEW/EST PATIENT Routine 06/14/2024 9:00 AM EST Encounter for dental examination ORAL HYGIENE INSTRUCTIONS Routine 06/14/2024 9:00 AM EST Encounter for dental examination NUTRITIONAL COUNSELING CONTROL OF DENTAL DISEASE Routine 06/14/2024 9:00 AM EST Encounter for dental examination PROPHYLAXIS - ADULT Routine 06/14/2024 9 :00 AM EST Encounter for dental examination BITEWINGS - FOUR RADIOGRAPHIC IMAGES Routine 06/14/2024 9:00 AM EST Encounter for dental examination PERIODIC ORAL EVALUATION ESTABLISHED PATIENT Routine 06/14/2024 9:00 AM EST Encounter for dental examination documented in this encounter Visit Diagnoses Diagnosis Encounter for dental examination- Primary Dental examination documented in this encounter
--- OUTSIDE RECORDS SUMMARY | 2024-06-21 07:11 | XMS_ITS ---
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 :1965???Age:58 Y???Sex:Female D ate:10/17/2023 Address:[address] [place] [address] Pcp:SHILPA FRAUSTO Subjective: * Chief Complaints: * ???1. 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 * Medical History:? Objective: * Vitals:? Assessment: Plan: * Treatment: * Images: Billing Information: * Visit Code:? * Procedure Codes:? * Electronic signature of Nisha Castillo MD on 06/21/2024 at 07:10 AM EST Sign off status: Pending * Appointment Provider:?Tamy Castillo M.D. Date:?10/17/2023 Generated for Nata magaña/Robyn/eTransmitting on:?06/21/2024 07:10 AM EST
--- OUTSIDE RECORDS SUMMARY | 2024-06-21 07:11 | XMS_ITS | Clinical Summary ---
Author Organization [facility] Address [address] [place] [address] Care Team Providers Care Fulfillment Mail Clerk Name Role Phone Unavailable Primary Care Provider Unavailabl e Source Comments PLEASE NOTE, if this patient is a minor, it may be UNLAWFUL to discuss sensitive information that is contained in these records (such as FAMILY PLANNING, MENTAL HEALTH or SUBSTANCE ABUSE) with the minor patient's parent or other person without the patient's specific authorization.[facility] Allergies Active Allergy Reactions Criticality Noted Date Comments Oxycodone-Acetaminophen 10/29/2021 Medications No known medications Active Problems No known active problems Encounters Date Type Department Care Team Description 06/14/2024 9:00 AM EST Office Visit [facility] [address] [place] [phone] Charlette Martinez Encounter for dental examination (Primary Dx) from Last 3 Months Social History Tobacco Use Types Packs/Day Years Used Date Smoking Tobacco: Never Passive Smoke Exposure: Never Smokeless Tobacco: Never Tobacco Cessation:Counseling Given: Not Answered Social Connections Answer Date Recorded Connectedness 0 [...] Orientation Straight 10/12/2022 6: 29 PM PDT Last Filed Vital Signs Vital Sign Reading Time Taken Comments Blood Pressure 110/75 06/14/2024 3:26 PM EST Pulse 63 06/14/2024 3:26 PM EST Temperature - - Respiratory Rate - - Oxygen Saturation - - Inhaled Oxygen Concentration - - Weight - - Height - - Body Mass Index - - Plan of Treatment Upcoming Encounters Date Type Department Care Team (Late st Contact Info) Description 12/13/2024 9:00 AM EDT Office Visit [facility] [address] [place] [address] Charlette Martinez [address] [place] [address] Health Maintenance Due Date Last Done Comments Dental FMX/Pano 1965 Diabetes Screening 1965 HPV Screening 1965 Hepatitis C Screening 1967 Lipid Screening 1965 Pap + HPV 1967 HIV Screening 07/22/1982 Imm-DTaP/Tdap/Td (1 - Tdap) 07/22/1986 Imm-Hepatitis B (1 of 3 - 19 + 3-dose series) 07/22/1986 Cervical Cancer Screening 07/22/1988 Pap Smear 07/22/1988 Breast Cancer Screening (Mammogram) 2007 CT Colonography 07/22/2012 Colonoscopy 07/22/2012 FIT/gFOBT 07/22/2012 Flexible Sigmoidoscopy 07/22/2012 Imm-Zoster, Recombinant (1 of 2) 07/22/2017 Jzd-VGRGM-50 ( season) 2023 Imm-Influenza (#1) 2023 Alcohol and Drug Screen 04/18/2024 Depression Annual Screen 04/18/2024 Hypertension Screening (#1) 11/21/2024 Tobacco Screening 11/21/2024 06/14/2024 Dental BW 06/16/2025 06/14/2024, 08/0 09/2023, 11/01/2022, Additional history exists Dental Examination 06/16/2025 06/14/2024, 0 11/22/2023, 04/28/2023, Additional history exists Dental Perio Charting 06/16/2025 06/14/2024 , 11/22/2023, 04/28/2023, Additional history exists Dental Prophy 06/16/2025 06/14/2024, 08/0 09/2023, 04/28/2023, Additional history exists Colorectal Cancer Screening 07/13/2026 Fecal DNA 07/13/2026 07/14/2023, 07/14/2023 Cervical Ablation/Cold-Knife Conization Discontinued Cervical Cryotherapy Discontinued Colposcopy Discontinued Endometrial Biopsy Discontinued Excision/Leep Discontinued HPV Genotyping Discontinued Vaginal Pap Discontinued Vulvoscopy Discontinued Procedures Procedure Name Priority Date/Time Associated Diagnosis Comments PERIODIC ORAL EVALUATION ESTABLISHED PATIENT Routine 06/14/2024 9:00 AM EST Encounter for dental examination DENTAL CASE MANAGEMENT - MOTIVATIONAL INTV Routine 06/14/2024 9:00 AM EST Encounter for dental examination PROPHYLAXIS - ADULT Routine 06/14/2024 9 :00 AM EST Encounter for dental examination COMP PERIODONTAL EVALUATION - NEW/EST PATIENT Routine 06/14/2024 9:00 AM EST Encounter for dental examination BITEWINGS [...] AM EST Encounter for dental examination ORAL CANCER SCREENING Routine 06/14/2024 9:00 AM EST Encounter for dental examination CASE PRESENTATION SUBS DTL & EXTENSIVE TX PLN Routine 06/14/2024 9:00 AM EST Encounter for dental examination from Last 3 Months Insurance HEALTH SAFETY NET DENTAL MEDICAID DENTAL
--- OUTSIDE RECORDS SUMMARY | 2024-06-21 07:11 | XMS_ITS | Patient Health Record ---
Author Organization [facility] Address [address] [place] [phone] Care Team Providers Care Public Relations Specialist Name Role Phone SHILPA GATICA Primary Care Provider Tamy Akers Unavailable [phone] Allergies Allergen (clinical drug ingredient) Drug/Non Drug Allergy documented on EMR Reaction Allergy Type Onset Date Status acetaminophen / oxycodone Percocet Nausea Drug Allergy Active Reason For Referral No Information Medications Medication SIG (Take, Route, Frequency, Duration) Notes Start Date End Date Status Vitamin A 68255 UNIT 1 capsule with food or milk Orally Once a day Active Vitamin K Active [place] 3 1000 MG 1 capsule Orally Twi ce a day Active Turmeric 500 MG 600mg Orally daily Active Atenolol-Chlorthalidone 50-25 MG 1 tablet Orally Once a day Active TRISH-e 200 MG 1/2 tab Orally daily Active Vicodin 5-300 MG 1 tablet as needed Orally every 6 hrs PRN for 7 days 04/27/2016 Not-Taking Anaprox DS 550 MG 1 tablet Orally Twic e a day NEEDED for 90 days 04/27/2016 Not-Taking Multi-Vitamin Daily - 1 tablet Orally On ce a day Active Social History Tobacco Use: Social History Observation Description Date Details (start date - stop date) Never Smoker NA - NA Tobacco Use/Smoking Question Answer Notes Are you a nonsmoker Alcohol Screen (Audit-C) Question Answer Notes Did you have a drink contain ing alcohol in the past year? Yes How often did you have a dri nk containing alcohol in the past year? 2 to 4 times a month (2 points) How many drinks did you have on a typical day when you were drinking in the past year? 1 or 2 drinks (0 point) Points 2 Interpretation Negative Sexual History Question Answer Notes Had sex in the past 12 months (vaginal, oral, or anal)? Yes with Men only Prevention strategies discussed: Other Problems Problem Type SNOMED Code ICD Code Onset Dates Problem Status W/U Status Risk Notes Problem Excessive and frequent menstruation (341573233) Excessive and frequent menstruation with regular cycle (N92.0) Active confirmed Problem Abnormal vaginal bleeding (064799030) Other specified abnormal uterine and vaginal bleeding (N93.8) Active confirmed Plan Of Treatment Pending Test Test Name Order Date PT AND PTT 03/17/2016 COMPLETE CBC WITH DIFF 03/17/2016 Insurance Providers Payer Name Payer Address Payer Phone Subscriber Number Group Number Insured Name Patient Relationship to Insured Coverage Start Date Coverage End Date MEDICARE [address] [place], [place] [id number] EDER PITTMAN Self - patient is the insured Medical (General) History Medical History History ICD Code Carpal tunnel syndrome, unspecified uppe r limb G56.00 Sleep apnea, unspecified G47.30 Anxiety disorder, unspecified F41.9 Other depressive episodes F32.8 Essential (primary) hypertension I10 Arthritis spine and neck Gallbladder disease Back disc problems Excessive and frequent menstruation with regular cycle N92.0 Other specified abnormal uterine and vag inal bleeding N93.8 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
--- OUTSIDE RECORDS SUMMARY | 2024-06-21 07:11 | XMS_ITS | Encounter Summary ---
Author Organization [facility] Address [address] [place] [address] Care Team Providers Care Removable Prosthodontist Name Role Phone ReinaldoDrea ADELINA Primary Care Provider [phone] Encounter Details Date Type Department Care Team (Late st Contact Info) Description 09/24/2021 Dental Interim Note [facility] [address] [place] [phone] RuizCaraElvira Y [address] [place] [address] Social History Tobacco Use Types Packs/Day Years Used Date Smoking Tobacco: Never Smokeless Tobacco: Never Social Connections Answer Date Recorded Social Connections and Isolation 2 09/29/2020 Financial Resource Strain Answer Date R ecorded Financial Resource Strain 2 2020 Stress Answer Date Recorded Stress 2 09/29/2020 Physical Activity Answer Date Recorded Physical Activity 2 09/29/2020 Food Insecurity Answer Date Recorded Food 2 09/29/2020 Transportation Needs Answer Date Record ed Transportation 1 09/29/2020 Housing Stability Answer Date Recorded Housing 1 09/29/2020 Safety and Environment Answer Date Sheldon rded Safety 1 09/29/2020 Utilities Answer Date Recorded Utilities 2 09/29/2020 Employment Answer Date Recorded Employment 1 09/29/2020 Comments Unknown Sex and Gender Information Value Date Recorded Sex Assigned at Not on file Legal Sex Female 6:57 AM PST Gender Identity Not on file Sexual Orientation Straight 10/12/2022 6: 29 PM PDT COVID-19 Exposure Response Date Recorded In the last 10 days, have yo u been in contact with someone who was confirmed or suspected to have Coronavirus/COVID-19? No / Unsure 08/26/2021 9:00 AM EDT documented as of this encounter Plan of Treatment Upcoming Encounters Date Type Department Care Team (Late st Contact Info) Description 12/13/2024 9:00 AM EDT Office Visit [facility] [address] [place] [address] Charlette Martinez [address] [place] [address] documented as of this encounter Visit Diagnoses Not on filedocumented in this encounter Care Teams Removable Prosthodontist Relationship Specialty Start Date End Date Drea Najera DMD [address] [place] [address] PCP - General 06/27/20 03/05/24 documented as of this encounter
[2024-06-21 08:33] LABS: Alanine Aminotransferase 65 U/L (0-31); Albumin Level 4.3 g/dL (3.5-5.0); Alkaline Phosphatase 87 U/L (39-117); Anion Gap 14 (12-20); Aspartate Amino Transferase 44 U/L (5-31); Bilirubin Direct 0.2 mg/dL (0.0-0.5); Bilirubin Total 0.7 mg/dL (0.0-1.0); Blood Urea Nitrogen 12 mg/dL (9-16); Calcium 9.9 mg/dL (8.4-10.2); Carbon Dioxide 29 mmol/L (22-29); Chloride 102 mmol/L (96-108); Cholesterol 273 mg/dL (<200); Estimated Glomerular Filt Rate > 60; Glucose Fasting 107 mg/dL (60-99); HDL Cholesterol 52 mg/dL (>40); Iron 172 mcg/dL (30-160); LDL Cholesterol Calculated 183 mg/dL (<100); Percent Iron Saturation 64 % (15-50); Potassium 3.5 mmol/L (3.3-5.1); Sodium 141 mmol/L (135-145); Total Iron Binding Capacity 268 mcg/dL (228-428); Total Protein 8.3 g/dL (6.5-8.0); Triglycerides 191 mg/dL (<150); Unsaturated Iron Binding 96 ug/dL
[2024-06-21 08:49] LABS: Ferritin 163 ng/mL (10-250)
[2024-06-21 09:02] LABS: Vitamin D 25-OH Total 17.8 ng/mL (>30)
[2024-06-21 09:04] LABS: HBc Num1 0.15 S/CO (0.00-0.79); HBsAGNum1 0.33 S/CO (0.00-0.99); Hepatitis A Antibody IgG Nonreactive (Nonreactive); Hepatitis B Core Antibody Nonreactive (Nonreactive); Hepatitis B Surface Antigen Negative (Negative); ~HepC Num1 0.11 S/CO (0.00-0.79); ~Hepatitis A Antibody IgG 0.42 S/CO (0.00-0.99); ~Hepatitis B Surface Antibody NONREACTIVE (Nonreactive); ~Hepatitis C Antibody Nonreactive (Nonreactive)
[2024-06-22 15:24] LABS: Mitochondrial Antibodies NEGATIVE (NEGATIVE)
[2024-06-22 21:42] LABS: Transglutaminase IgA <1.0 U/mL
[2024-06-23 19:19] LABS: Alpha 1 Anti-trypsin 105 mg/dL (83-199); Ceruloplasmin 23 mg/dL (14-48)
[2024-06-23 21:23] LABS: Immunoglobulin A 381 mg/dL (47-310); Immunoglobulin G 1594 mg/dL (600-1640)
[2024-06-26 06:34] LABS: Liver Kidney Microsomal Ab <=20.0 U (<=20.0)
[2024-06-26 11:29] LABS: Smooth Muscle Antibody <20 U (<20)
[2024-06-26 16:19] LABS: Anti Nuclear Antibody Screen POSITIVE (NEGATIVE)
[2024-06-26 16:28] LABS: Anti Nuclear Antibody Pattern Nuclear, Homogeneous
== END 2024-06-21 07:08 | disposition home or self-care (01) ==
LOC: HO.LAB 07:07
PROVIDERS: Absent Provider Internal Medicine; PCP Internal Medicine; Visit Provider Internal Medicine
DX: R74.01 Elevation of levels of liver transaminase levels (principal); E55.9 Vitamin D deficiency, unspecified; R73.02 Impaired glucose tolerance (oral); E78.5 Hyperlipidemia, unspecified
CPT/HCPCS: 36415; 80053; 80061; 80076; 82103; 82248; 82306; 82390; 82728; 82784; 83540; 86015; 86038; 86039; 86364; 86376; 86381; 86704; 86706; 86708; 86803; 87340

== ENCOUNTER 2024-06-28 10:44 | Outpatient (REF) | payer MEDICARE, MEDICAID, SELFPAY ==
[2024-06-28 11:27] LABS: Creatinine Urine 161.01 mg/dL; Microalbum/Creatinine Ratio Ur 6.8 ug/mg cr (<30)
--- OUTSIDE RECORDS SUMMARY | 2024-06-28 13:40 | XMS_ITS ---
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 :1965???Age:58 Y???Sex:Female D ate:10/17/2023 Address:[address] [place] [address] Pcp:SHILPA FRAUSTO Subjective: * Chief Complaints: * ???1. 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 * Medical History:? Objective: * Vitals:? Assessment: Plan: * Treatment: * Images: Billing Information: * Visit Code:? * Procedure Codes:? * Electronic signature of Nisha Castillo MD on 06/28/2024 at 01:40 PM EDT Sign off status: Pending * Appointment Provider:?Tamy Castillo M.D. Date:?10/17/2023 Generated for Nata magaña/Robyn/eTransmitting on:?06/28/2024 01:40 PM EDT
--- OUTSIDE RECORDS SUMMARY | 2024-06-28 13:40 | XMS_ITS | Encounter Summary ---
Author Organization [facility] Address [address] [place] [address] Care Team Providers Care Electric Meter Inspector Name Role Phone Unavailable Primary Care Provider Unavailabl e Reason for Visit * Reason Comments Dental Hygiene/ Preventive Recall Encounter Details Date Type Department Care Team (Late st Contact Info) Description 06/14/2024 9:00 AM EST Office Visit [facility] [address] [place] [phone] Charlette Martinez [address] [place] [address] Encounter for dental examination (Primary Dx) Social [...] 58 year old female, presents alone for [employer]. Occupational Therapy Aides Teacher: No Chief Complaint Patient presents with Dental [...] Charlette Martinez Billjake provider: Maddie Gonzales DDS D1310 - NUTRITIONAL COUNSELING CONTROL OF DENTAL DISEASE (Completed) Service provider: Charlette Martinez Billing provider: Maddie Gonzales DDS D0603 - CARIES RISK ASSESSMENT & DOC FINDING HIGH RISK (Completed) Service provider: Charlette Martinez Billing provider: Maddie Gonzales DDS D0274 - BITEWINGS - FOUR RADIOGRAPHIC IMAGES (Completed) Service provider: Charlette Martinez Billing provider: Maddie Gonzales DDS D0180 - COMP PERIODONTAL EVALUATION - [...] Maddie Gonzales DDS Prophstanislaw completed with ultrasonic public safety officer OHI & Nutrition counseling provided, discussed: Gingivitis [...] Description 12/13/2024 9:00 AM EDT Office Visit [facility] [address] [place] [phone] Charlette Martinez [address] [place] [address] Scheduled Orders Name Type Priority Associated Diagnoses [...]
--- OUTSIDE RECORDS SUMMARY | 2024-06-28 13:40 | XMS_ITS | Clinical Summary ---
Author Organization [facility] Address [address] [place] [address] Care Team Providers Care Hollow Core Door Frame Assembler Name Role Phone Unavailable Primary Care Provider [...] Description 06/14/2024 9:00 AM EST Office Visit [facility] [address] [place] [phone] Charlette Martinez Encounter for dental examination (Primary [...] Description 12/13/2024 9:00 AM EDT Office Visit [facility] [address] [place] [address] Charlette Martinez [address] [place] [address] Health Maintenance Due Date Last Done Comments [...] 07/22/2012 Imm-Zoster, Recombinant (1 of 2) 07/22/2017 Pih-WGREY-35 ( season) 2023 Imm-Influenza (#1) 2023 Alcohol and Drug Screen 04/18/2024 Depression Annual Screen 04/18/2024 Hypertension Screening (#1) 06/14/2025 Tobacco Screening 06/14/2025 06/14/2024 Dental BW 06/16/2025 06/14/2024, 08/0 09/2023, [...]
--- OUTSIDE RECORDS SUMMARY | 2024-06-28 13:40 | XMS_ITS | Encounter Summary ---
Author Organization [facility] Address [address] [place] [address] Care Team Providers Care Manager [employer] Name Role Phone ReinaldoDrea ADELINA Primary Care Provider [phone] Encounter Details Date Type Department Care Team (Late st Contact Info) Description 09/24/2021 Dental Interim Note [facility] [address] [place] [phone] RuizCaraElvira Y [address] [place] [address] Social History Tobacco Use Types Packs/Day Years [...] Description 12/13/2024 9:00 AM EDT Office Visit [facility] [address] [place] [address] Charlette Martinez [address] [place] [address] documented as of this encounter Visit Diagnoses Not on filedocumented in this encounter Care Teams Manager [employer] Relationship Specialty Start Date End Date Drea Najera DMD [address] [place] [address] PCP - General 06/27/20 03/05/24 documented as of this encounter
== END 2024-06-28 10:45 | disposition home or self-care (01) ==
LOC: HO.LNP 10:44
PROVIDERS: Visit Provider Internal Medicine
DX: E11.9 Type 2 diabetes mellitus without complications (principal)
CPT/HCPCS: 82043; 82570

== ENCOUNTER 2024-07-02 11:18 | Outpatient (AMB) | payer MEDICARE, MEDICAID, SELFPAY ==
--- NOTE | 2024-07-02 11:20 | MHC.OFFVIS ---
Vital Signs 07/02/24 11:21 Height 5 ft 3 in Weight 189 lb 9.561 oz BMI 33.6 BP 94/47 L Blood Pressure Location Lt brachial Position Sitting Pulse 65 Intake Visit Reasons: Elevated LFTs Intake Note: Lora presents in the office as a follow up for elevated LFT. CC: Joint pains, she states she has lost some weight. Her joints have gotten worse. Seh states she takes a lot of OTC minerals and natural stuff. Allergies acetaminophen [Percocet] Allergy (Intermediate, Verified 10/24/23 10:46) vomiting nabumetone Allergy (Intermediate, Verified 10/24/23 10:46) shortness of breath oxycodone [Percocet] Allergy (Intermediate, Verified 10/24/23 10:46) vomiting metformin Adverse Reaction (Intermediate, Uncoded 10/24/23 10:49) abdominal pain, diarrhea HPI Comments Details: This is a 58 y.o F with PMH of HTN, DM, obesity, HLD, who is here for elevated LFTs. Pt reports no GI issues to include abd pain, N,V, D. Pt reports poor dietary choices during the pandemic years. Since finding out about elevated LFts since May 2023, has been working on diet as well as weight. Lost 23# in the past 3 months. From chart review has had abnormal LFTs since 2019 but up x10UNL on most recent check. US Abd with elasto reviewed and suspicious for advanced fibrosis. Pt does nto drink. No current or prev drug use. No fam hx of liver diseases. No recent med changes in past 6 months. 07/02/24: Pt lost to follow up last year. Here for follow up for elevated LFTs. Abnormal iron studies noted. No fam hx of iron overload. Pt does report taking increased eggs and red meat to increase protein intake recently. Also on MV that contains iron. In addition, also noted to have NELIA + without concurrent AIH sero positive. Laboratory Tests 06/15/23 10/24/23 06/21/24 08:05 09:58 07:32 Hgb 16.6 H Hct 47.3 H Plt Count 255 Sodium 141 Potassium 3.5 Chloride 102 BUN 12 Creatinine 0.67 Fasting Glucose 107 H Hgb A1c (Clinic) 5.6 Iron 172 H % Saturation 64 H Ferritin 163 AST 44 H ALT 65 H Total Protein 8.3 H Cholesterol 273 H LDL Cholesterol, Calc 183 H 25-OH Vitamin D Total 17.8 L IgG 1594 IgA 381 H NELIA Screen POSITIVE A NELIA Titer 1:160 H NELIA Pattern Nuclear, Homogeneous A Anti-Mitochondrial Ab NEGATIVE Anti-Smooth Muscle Ab <20 Tiss Transglutamin IgA <1.0 Radha/Kid Microsom Ab Int <=20.0 Hepatitis A IgG Ab Nonreactive Hep Bs Antigen Negative Hep Bs Antibody NONREACTIVE Hep B Core Total Ab Nonreactive Hepatitis C Ab (EIA) Nonreactive PFSH Medical History Impaired glucose tolerance Mild recurrent major depression Class 2 obesity with body mass index (BMI) of 38.0 to 38.9 in adult Leg pain, bilateral Left wrist pain Left shoulder pain Left elbow pain Swollen ankles Right knee pain Hypovitaminosis D Essential hypertension Surgical History History of hysteroscopy History of laparoscopic cholecystectomy Family History Father Medical history unknown Mother Diabetes Hypertension Chronic mental illness Mental health disorder Maternal Grandmother Throat cancer Maternal Aunt Chronic mental illness Mental health disorder Family/Other Chronic mental illness Mental health disorder Social History Housing: House Alcohol intake: current Alcohol intake frequency: holidays/special occasions only Patient Tobacco Use Status: Never used Tobacco e-Cigarette/Vaping Use: Never Used Second Hand Smoke Exposure: No service: No Current occupational status: disabled Cognitive needs: No Hearing needs: No Vision needs: No Review of Systems Const All systems reviewed & are unremarkable except as noted in HPI and below Physical Exam Vital Signs: Last Vital Signs Pulse 65 07/02/24 11:21 BP 94/47 L 07/02/24 11:21 BMI result Body Mass Index 33.6 No apparent distress Nonicteric Abdomen soft, nondistended Alert and oriented x3, normal gait Assessment & Plan Assessment & Plan (1) NELIA positive: Code(s): R76.8 - Other specified abnormal immunological findings in serum Category: Medical (2) Abnormal iron saturation: Code(s): R79.0 - Abnormal level of blood mineral Category: Medical (3) Transaminitis: Code(s): R74.01 - Elevation of levels of liver transaminase levels Category: Medical (4) Hypovitaminosis D: Code(s): E55.9 - Vitamin D deficiency, unspecified Category: Medical Plan 1. Elevated LFTs: AST and ALT better. Will need eval for HH given erythrocytosis with high iron sat of 64%. Plan: - HOLD iron supplements - Recheck iron labs + hemochromatosis panel in a week - If confirms iron overload, will refer to heme. Will also need a liver bx 2. NELIA pos checked as part of AIH work up. Remaining AIH serology negative. Plan: - Rheum referral requested 3. Low Vit D: Plan: - Weekly supplement Rxed x 90 days Follow up 6 weeks Orders: Orders Ferritin Today R79.0 - Abnormal level of blood mineral DNA Analysis Hemochromatosis Today E83.19 - Other disorders of iron metabolism, R79.0 - Abnormal level of blood mineral IRON PROFILE Today R79.0 - Abnormal level of blood mineral Referrals Rheumatology Referral R76.8 - Other specified abnormal immunological findings in serum Medications: New cholecalciferol (vitamin D3) 1,250 mcg PO QWEEK 90 days 13 caps 0RF Discontinued cholecalciferol (vitamin D3) Discontinued Reason: Patient Completed Course 25 mcg PO DAILY 90 days 90 tabs 3RF E55.9 - Vitamin D deficiency, unspecified Coding Level of Care Code Est Pt Level 4 (87467) Diagnoses NELIA positive R76.8 Abnormal iron saturation R79.0 Transaminitis R74.01 Hypovitaminosis D E55.9
[2024-07-02 11:21] VITALS: BP 94/47; PULSE 65; BMI 33.6
--- OUTSIDE RECORDS SUMMARY | 2024-07-02 13:27 | XMS_ITS ---
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 :1965???Age:58 Y???Sex:Female D ate:10/17/2023 Address:[address] [place] [address] Pcp:SHILPA FRAUSTO Subjective: * Chief Complaints: * ???1. 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 * Medical History:? Objective: * Vitals:? Assessment: Plan: * Treatment: * Images: Billing Information: * Visit Code:? * Procedure Codes:? * Electronic signature of Nisha Castillo MD on 07/02/2024 at 01:26 PM EDT Sign off status: Pending * Appointment Provider:?Tamy Castillo M.D. Date:?10/17/2023 Generated for Nata magaña/Robny/eTransmitting on:?07/02/2024 01:26 PM EDT
--- OUTSIDE RECORDS SUMMARY | 2024-07-02 13:27 | XMS_ITS | Encounter Summary ---
Author Organization [facility] Address [address] [place] [address] Care Team Providers Care Campus Aide Name Role Phone Unavailable Primary Care Provider Unavailabl e Reason for Visit * Reason Comments Dental Hygiene/ Preventive Recall Encounter Details Date Type Department Care Team (Late st Contact Info) Description 06/14/2024 9:00 AM EST Office Visit [facility] [address] [place] [phone] Charlette Martinez [address] [place] [address] Encounter for dental examination (Primary Dx) Social [...] 58 year old female, presents alone for Buck. 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 [address] [place] [phone] Charlette Martinez [address] [place] [phone] Scheduled Orders Name Type Priority Associated Diagnoses [...]
--- OUTSIDE RECORDS SUMMARY | 2024-07-02 13:27 | XMS_ITS | Patient Health Record ---
Author Organization [facility] Address [address] [place] [phone] Care Team Providers Care Under Sheriff Name Role Phone SHILPA GATICA Primary Care Provider Tamy Akers Unavailable [phone] Allergies Allergen (clinical drug ingredient) Drug/Non Drug Allergy documented on EMR Reaction Allergy Type Onset Date Status acetaminophen / oxycodone Percocet Nausea Drug Allergy Active Reason For Referral No Information Medications Medication SIG (Take, Route, Frequency, Duration) Notes Start Date End Date Status Vitamin A 35665 UNIT 1 capsule with food or milk Orally Once a day Active Vitamin K Active [place] 3 1000 MG 1 capsule Orally Twi [...] Risk Notes Problem Excessive and frequent menstruation (055589042) Excessive and frequent menstruation with regular cycle (N92.0) Active confirmed Problem Abnormal vaginal bleeding (340687059) Other specified abnormal uterine and vaginal bleeding (N93.8) Active confirmed Plan Of Treatment Pending Test Test Name Order Date PT AND PTT 03/17/2016 COMPLETE CBC WITH DIFF 03/17/2016 Insurance Providers Payer Name Payer Address Payer Phone Subscriber Number Group Number Insured Name Patient Relationship to Insured Coverage Start Date Coverage End Date MEDICARE [address] [place], [place] [id number] [phone] [id number] EDER PITTMAN Self - patient is the [...]
--- OUTSIDE RECORDS SUMMARY | 2024-07-02 13:27 | XMS_ITS | Encounter Summary ---
Author Organization [facility] Address [address] [place] [address] Care Team Providers Care Tie Maker Name Role Phone ReinaldoDrea ADELINA Primary Care Provider [phone] Encounter Details Date Type Department Care Team (Late st Contact Info) Description 09/24/2021 Dental Interim Note [facility] [address] [place] [phone] RuizCaraElvira Y [address] [place] [address] Social History Tobacco Use Types Packs/Day Years [...] Description 12/13/2024 9:00 AM EDT Office Visit [facility] [address] [place] [phone] Charlette Martinez [address] [place] [address] documented as of this encounter Visit Diagnoses Not on filedocumented in this encounter Care Teams Tie Maker Relationship Specialty Start Date End Date Drea Najera DMD [address] [place] [address] PCP - General 06/27/20 03/05/24 documented as of this encounter
--- OUTSIDE RECORDS SUMMARY | 2024-07-02 13:27 | XMS_ITS | Clinical Summary ---
Author Organization [facility] Address [address] [place] [address] Care Team Providers Care Professor Of Forestry Name Role Phone Unavailable Primary Care Provider [...] Description 06/14/2024 9:00 AM EST Office Visit [facility] [address] [place] [phone] Charlette Martinez Encounter for dental examination (Primary [...] Description 12/13/2024 9:00 AM EDT Office Visit [facility] [address] [place] [phone] Charlette Martinez [address] [place] [address] Health Maintenance Due Date Last Done Comments [...] 07/22/2012 Imm-Zoster, Recombinant (1 of 2) 07/22/2017 [id number] ( season) 2023 Imm-Influenza (#1) 2023 Alcohol [...]
== END 2024-07-02 11:36 | disposition home or self-care (01) ==
LOC: HO.HGI 11:18
PROVIDERS: PCP Internal Medicine; Visit Provider Internal Medicine
DX: R76.8 Other specified abnormal immunological findings in serum (principal); R79.0 Abnormal level of blood mineral; R74.01 Elevation of levels of liver transaminase levels; E55.9 Vitamin D deficiency, unspecified
CPT/HCPCS: 99214

== ENCOUNTER → 2024-07-02 11:18 | Outpatient (BNVA) | payer MEDICARE, MEDICAID, SELFPAY | PROVIDERS: PCP Internal Medicine; Visit Provider Internal Medicine | DX: R79.0 Abnormal level of blood mineral (principal); R76.8 Other specified abnormal immunological findings in serum; R74.01 Elevation of levels of liver transaminase levels; E55.9 Vitamin D deficiency, unspecified | CPT/HCPCS: 99212 ==

== ENCOUNTER 2024-07-12 07:07 | Outpatient (REF) | payer MEDICARE, MEDICAID, SELFPAY ==
[2024-07-12 08:11] LABS: Alanine Aminotransferase 62 U/L (0-31); Albumin Level 4.3 g/dL (3.5-5.0); Alkaline Phosphatase 80 U/L (39-117); Anion Gap 10 (12-20); Aspartate Amino Transferase 41 U/L (5-31); Bilirubin Total 0.8 mg/dL (0.0-1.0); Blood Urea Nitrogen 12 mg/dL (9-16); Carbon Dioxide 31 mmol/L (22-29); Chloride 104 mmol/L (96-108); Cholesterol 258 mg/dL (<200); Estimated Glomerular Filt Rate > 60; Glucose Fasting 102 mg/dL (60-99); HDL Cholesterol 50 mg/dL (>40); Iron 175 mcg/dL (30-160); LDL Cholesterol Calculated 171 mg/dL (<100); Percent Iron Saturation 63 % (15-50); Potassium 3.3 mmol/L (3.3-5.1); Sodium 142 mmol/L (135-145); Total Iron Binding Capacity 276 mcg/dL (228-428); Total Protein 7.9 g/dL (6.5-8.0); Triglycerides 188 mg/dL (<150); Unsaturated Iron Binding 101 ug/dL
[2024-07-12 08:28] LABS: Ferritin 155 ng/mL (10-250)
== END 2024-07-12 07:08 | disposition home or self-care (01) ==
LOC: HO.LAB 07:07
PROVIDERS: PCP Internal Medicine; Visit Provider Internal Medicine
DX: E78.5 Hyperlipidemia, unspecified (principal); E11.65 Type 2 diabetes mellitus with hyperglycemia; R79.0 Abnormal level of blood mineral; E83.19 Other disorders of iron metabolism
CPT/HCPCS: 36415; 80053; 80061; 81256; 82728; 83540

== ENCOUNTER 2024-07-16 15:16 | Outpatient (AMB) | payer MEDICARE, MEDICAID, SELFPAY ==
--- NOTE | 2024-07-16 15:24 | AM.OFFVISMDC ---
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 Hotel Required: No Accompanied by: Self / Same As Patient Allergies acetaminophen [Percocet] Allergy (Intermediate, Verified 07/16/24 15:43) vomiting nabumetone Allergy (Intermediate, Verified 07/16/24 15:43) shortness of breath oxycodone [Percocet] Allergy (Intermediate, Verified 07/16/24 15:43) vomiting metformin Adverse Reaction (Intermediate, Uncoded 07/16/24 15:43) abdominal pain, diarrhea Medication List - Last Reconciled 07/16/24 by Nelia Schmitt MD atenolol-chlorthalidone 50-25 mg 1 tab PO DAILY 90 days blood sugar diagnostic (FreeStyle Lite Strips) Use 1 test strip once per day blood-glucose meter (FreeStyle Lite Meter kit) As directed cholecalciferol (vitamin D3) 1,250 mcg PO QWEEK 90 days lancets (FreeStyle Lancets) As directed once per day HPI HPI Comments History of Present Illness Details The patient is a 58-year-old female presenting with a Medicare annual wellness exam. She manages her Type 2 Diabetes Mellitus through diet and exercise, with a recent HbA1c at 5.5%. Despite diet improvements, her LDL cholesterol remains elevated at 171 mg/dL. The patient has depression, scoring 15 on the PHQ-9, and reports occasional sensory overload and anxiety. She has a history of cholecystectomy and hysteroscopy but retains her reproductive organs. Mammography was done recently, and her most recent Cologuard test was negative. Allergies include reactions to Percocet, nabumetone, and metformin. 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 [facility] handed to patient. Ruby of care updated. - Negative Cologuard test in 2023, next due in 2026. - Recent mammogram performed this past summer. - Vitamin D supplementation due to low levels. - Dietary counseling for diabetes and cholesterol management. - Exercise recommended as part of diabetes management. [facility] Medical History Impaired glucose tolerance Mild recurrent major depression Class 2 obesity with body mass index (BMI) of 38.0 to 38.9 in adult Leg pain, bilateral Left wrist pain Left shoulder pain Left elbow pain Swollen ankles Right knee pain Hypovitaminosis D Essential hypertension Surgical History History of hysteroscopy History of laparoscopic cholecystectomy Family History Father Medical history unknown Mother Diabetes Hypertension Chronic mental illness Mental health disorder Maternal Grandmother Throat cancer Maternal Aunt Chronic mental illness Mental health disorder Family/Other Chronic mental illness Mental health disorder Social History Housing: House Alcohol intake: current Alcohol intake frequency: holidays/special occasions only Patient Tobacco Use Status: Never used Tobacco e-Cigarette/Vaping Use: Never Used Second Hand Smoke Exposure: No service: No Current occupational status: disabled Cognitive needs: No Hearing needs: No Vision needs: No Questionnaire Medicare Wellness Checkup What gender do you identify with?: female During the past 4 weeks, how much have you been bothered by emotional problems such as feeling anxious, depressed, irritable, sad or downhearted, and blue?: moderately During the past 4 weeks, has your physical & emotional health limited your social activities with family, friends, neighbors, or groups?: quite a bit During the past 4 weeks, how much bodily pain have you generally had?: severe pain During the past 4 weeks, was someone available to help you if you needed & wanted help?: yes, as much as I wanted During the past 4 weeks, what was the hardest physical activity you could do for at least 2 minutes?: very light Can you get to places out of walking distance without help? (For eg., can you travel alone on buses, taxis or drive your car?): Yes Can you go shopping for groceries or clothes without someone's help?: Yes (online shopping) Can you prepare your own meals?: Yes (with 's help) Can you do your housework without help?: Yes (with 's help) Because of any health problems, do you need the help of another person with your personal care needs such as eating, bathing, dressing or getting around the house?: No Can you handle your own money without help?: Yes During the past 4 weeks, how would you rate your health in general?: poor During the past 4 weeks how have things been going for you?: good & bad parts about equal Are you having difficulties driving your car?: no Do you always fasten your seat belt when you are in a car?: yes, usually During past 4 weeks, have you been bothered by the following: never: Sexual problems?, Trouble eating well?, Teeth or denture problems? and Problems using the telephone?, sometimes: Falling or dizzy when standing up and often: Tiredness or fatigue? Have you fallen 2 or more times in the past year?: No Are you afraid of falling?: Yes Are you a smoker?: no During the past 4 weeks, how many drinks of wine, beer, or other alcoholic beverages did you have?: no alcohol at all Do you exercise for about 20 minutes 3 or more times a week?: yes, some of the time Have you been given information to help with the following?: no: Hazards in your house that might hurt you? and no: Keeping track of your medications? How often do you have trouble taking medicines the way you have been told to take them?: I always take medicine as prescribed How confident are you that you can control & manage most of your health problems?: very confident What is your race?: or origin or descent Mini Mental State Exam (MMSE) Orientation What is the (year) (season) (date) (day) (month)?: year, season, date, day and month Where are we (state) (county) (town or city) (hospital) (floor)?: state, county, town or city, hospital/clinic and floor Registration Name of 3 unrelated objects clearly and slowly, then ask patient to repeat all 3 of them. (1st repeat determines score. Make sure they can repeat all three): object 1, object 2 and object 3 Attention & Calculation (CHOOSE ONE) Spell WORLD backwards (DLROW): 5 letters Recall Ask patient to repeat the 3 items from question #3.: object 1 and object 2 Language Show patient a wristwatch & ask what it is. Repeat for pencil.: watch and pencil Ask the patient to repeat the phrase 'No ifs, ands, or buts' after you.: correct Ask the patient to 'take a piece of paper with their right hand' 'fold paper in half' 'place paper on floor': take paper in right hand, fold paper in half and place paper on floor Print the sentence 'CLOSE YOUR EYES' on a piece. If patient actually closes eyes then score.: followed written direction Give patient a blank piece of paper & ask to write a sentence. Score if it contains a noun & verb.: sentence contains subject and verb Ask patient to copy figure of intersecting pentagons exactly. Score if all 10 angles & 2 intersects are included.: all 10 angles present & 2 are intersected Score Score: 29 Activity of Daily Living Bathing - sponge bath, tub bath or shower: receives no assistance (gets in/out by self, if usual bathing means Dressing - getting clothes from closets & drawers, including inner/outer garments & fasteners.: gets clothes & gets completely dressed without help Toileting - going to the 'toilet room' for urine/bowel elimination & cleaning self/arranging clothes: goes to toilet room, cleans self, arranges clothes without help Transfer: moves in & out of bed and chair without help (may use support object) Continence: controls urination/bowel movements completely by self Feeding: feeds self without help Total Score: 0 Information obtained from: patient Using telephone: independent Traveling: independent Shopping: independent Preparing meals: independent Housework: independent Taking medicine: independent Managing money: independent PHQ-9 Over the last 2 weeks, how often have you been bothered by any of the following problems? 1. Little interest or pleasure in doing things: more than half the days 2. Feeling down, depressed, or hopeless: more than half the days 3. Trouble falling or staying asleep, or sleeping too much: more than half the days 4. Feeling tired or having little energy: nearly every day 5. Poor appetite or overeating: not at all 6. Feeling bad about yourself - or that you are a failure or have let yourself or your family down: several days 7. Trouble concentrating on things, such as reading the newspaper or watching television: nearly every day 8. Moving or speaking so slowly that other people could have noticed. Or the opposite - being so fidgety or restless that you have been moving around a lot more than usual: more than half the days 9. Thoughts that you would be better off or of hurting yourself in some way: not at all Total score: 15 Depression Screening Interpretation: Positive Depression Screening Follow-up: Existing condition, Community Mental Health Worker F/U and Follow-up Visit Requested Depression Screening Done: Yes 40274 - PHQ-9 Billing: Yes Source: Developed by Drs. Guanakito Lamar, Rachel Corrales, Feliberto Owusu and colleagues, with an educational rosemary from [employer]. AUDIT C Alcohol Use Questionnaire (AUDIT-C) 1. How often do you have a drink containing alcohol?: Never Total Score: 0 Score Reviewed/Action Taken: No MARY-7 AMB Questionnaire MARY-7 Date MARY - 7 assessed: 07/16/24 Feeling nervous, anxious, or on edge: 1 = Several days Not being able to stop or control worryin = Several days Worrying too much about different things: 1 = Several days Trouble relaxin = Nearly every day Being so restless that it is hard to sit still: 1 = Several days Becoming easily annoyed or irritable: 1 = Several days Feeling afraid as if something awful might happen: 0 = Not at all Total MARY-7 score (0-4 normal; 5-9 mild; 10-14 moderate; 15-21 severe): 8 Source: Developed by Drs. Guanakito Lamar, Rachel Corrales, Feliberto Owusu and colleagues, with an educational rosemary from [employer]. MARY-7 Assessment Billing MARY-7 Assessment Tool: MARY-7 Assessment 07623 Thrive Questionnaire Date Thrive assessed: 07/16/24 I am a: Patient What is your living situation today?: I have a steady place to live Within the past 12 months, did the food you bought not last and you didn't have the money to get more?: Never true Within the past 12 months, did you worry whether your food would run out before you got money to buy more?: Never true Do you have trouble paying for medicines?: No Do you have trouble getting transportation to medical appointments?: No Do you have trouble paying your heating and electricity bill?: No Do you have trouble taking care of your child, family member or friend?: I choose not to answer this question Do you have trouble with day-to-day activities such as bathing, preparing meals, shopping, managing finances, etc.?: I choose not to answer this question Are you currently unemployed and looking for a job?: I choose not to answer this question Are you interested in more education?: I choose not to answer this question Please select the resources that you would like help with: None Currently or been in a relationship where the following occur: No concerns reported THRIVE Score: 0 Review of Systems Const All systems reviewed & are unremarkable except as noted in HPI and below Card Denies chest pain at rest, Denies chest pain with activity, Denies edema, Denies irregular heart rhythm, Denies claudication, Denies dyspnea, Denies dyspnea on exertion, Denies orthopnea, Denies paroxysmal nocturnal dyspnea and Denies slow heart rate Resp Denies cough, Denies dyspnea and Denies dyspnea on exertion GI Denies abdominal pain, Denies change in bowel habits, Denies excessive flatus, Denies nausea and Denies vomiting Neuro Denies lack of coordination Physical Exam Vital Signs: Last Vital Signs BP 120/80 07/16/24 15:27 BMI result Body Mass Index 33.7 Resp Effort & Inspection: normal respiratory effort Auscultation: clear to auscultation bilaterally Cardio Jugular venous distension: no JVD Rate: regular rate Rhythm: regular rhythm Heart sounds: S1 normal heart sound present and S2 normal heart sound present Neuro Gait exam (Neuro): Normal gait present Romberg Test: Negative Extrem General: Yes full ROM Results AMB Hemoglobin A1c AMB Hemoglobin A1c 5.5 % Last Edit by SHOAIB De Santiago on 07/16/24 15:39 Results Reviewed Results Reviewed: Laboratory Last Values Hgb A1c (Clinic) 5.5 % (4.0-6.0) 07/16/24 15:23 Assessment & Plan Assessment & Plan (1) Encounter for Medicare annual wellness exam: Code(s): Z00.00 - Encounter for general adult medical examination without abnormal findings (2) Diabetes mellitus: Code(s): E11.9 - Type 2 diabetes mellitus without complications Qualifiers: Diabetes mellitus type: type 2 Diabetes mellitus group home insulin use: without group home use Diabetes mellitus complication status: with hyperglycemia Qualified Code(s): E11.65 - Type 2 diabetes mellitus with hyperglycemia (3) Elevated hemoglobin: Code(s): D58.2 - Other hemoglobinopathies (4) Mild recurrent major depression: Code(s): F33.0 - Major depressive disorder, recurrent, mild Plan In managing the patient's diabetes and elevated cholesterol, I advised attempting lifestyle changes for four months to lower LDL cholesterol before considering medication. Her diabetes remains well-controlled. Depression is managed with therapy, and we discussed enhancing her support system. A follow-up on her eye condition and continued vitamin D supplementation for low levels are recommended. Regular screenings and preventive measures remain part of her care plan. Patient was informed and verbally consented to the use of an ambient scribe for clinic note documentation during this visit. We discussed the need for managing hyperlipidemia, considering her LDL cholesterol at 171 mg/dL and the associated diabetes diagnosis, which increases cardiovascular risk. I advised implementing dietary changes alongside regular exercise efforts for the next four months. Discussing the benefits and risks of potential lipid-lowering therapy was also addressed. The patient's depression management includes continued support and considering psychiatry referrals as needed. For preventive care, I supported vitamin D supplementation due to low levels and maintaining ongoing screenings with her next Cologuard test scheduled for 2026. Follow-up labs in four months will help assess cholesterol management success. Orders: Orders Vitamin D 25-OH Total 4 Months E55.9 - Vitamin D deficiency, unspecified Comprehensive Cameron. Panel Fast 4 Months E11.65 - Type 2 diabetes mellitus with hyperglycemia AMB Hemoglobin A1c Today E11.65 - Type 2 diabetes mellitus with hyperglycemia Lipid Panel 4 Months E78.5 - Hyperlipidemia, unspecified Microalbumin, Random (w Creat) 4 Months R80.9 - Proteinuria, unspecified Patient Instructions: - Implement dietary changes and increase exercise for cholesterol management. - Continue monitoring blood glucose levels through diet control. - Seek support for anxiety and depression symptoms. 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 - Return for lab tests in four months to evaluate cholesterol levels. Quality Reporting (2019) Depression/Bipolar (159/160/161/177) PHQ-9: Total score: 15 Coding Level of Care Code Medicare First (G0438) Diagnoses Encounter for Medicare annual wellness exam Z00.00 Type 2 diabetes mellitus with hyperglycemia, without long-term current use of insulin E11.65 Diabetes mellitus type: type 2 Diabetes mellitus group home insulin use: without superintendent terminal use Diabetes mellitus complication status: with hyperglycemia Elevated hemoglobin D58.2 Mild recurrent major depression F33.0 Additional Codes MARY-7 Assessment Billing - MARY-7 Assessment Tool: MARY-7 Assessment 92960 ([id number]) PHQ-9 - 29098 - PHQ-9 Billing: Yes ([id number]) Time Spent (min) 36
[2024-07-16 15:27] VITALS: BP 120/80; BMI 33.7
--- OUTSIDE RECORDS SUMMARY | 2024-07-16 17:15 | XMS_ITS ---
Author Organization [facility] Address [address] [address] Care Team Providers Care Securities Compliance Examiner Name Role Phone SHILPA GATICA Primary Care Provider Unavailab Tamy Warner Unavailable [phone] REASON FOR VISIT Annual MEDICAL OFFICE ASST Physical Encounters Encounter Location Date Provider Diagnosis [facility] [address] [place] [phone] 10/17/2023 Tamy Castillo Plan Of Treatment No Information Progress Notes * EDER PITTMANDOB: [birth year] (58 yo F)Acc No.[id number]:10/17/2023 PROGRESS NOTES Patient:?EDER PITTMAN Appointment Provider:?Tamy cleaning M.D. :1965???Age:58 Y???Sex:Female D ate:10/17/2023 Address:[address] [place] [address] Pcp:SHILPA FRAUSTO Subjective: * Chief Complaints: * ???1. Annual MEDICAL OFFICE ASST Physical. * Medical History:? Objective: * Vitals:? Assessment: Plan: * Treatment: * Images: Billing Information: * Visit Code:? * Procedure Codes:? * Electronic signature of Nisha Castillo MD on 07/16/2024 at 05:15 PM EDT Sign off status: Pending * Appointment Provider:?Tamy Castillo M.D. Date:?10/17/2023 Generated for Nata magaña/Robyn/eTransmitting on:?07/16/2024 05:15 PM EDT
--- OUTSIDE RECORDS SUMMARY | 2024-07-16 17:15 | XMS_ITS | Encounter Summary ---
Author Organization [facility] Address [address] [place] [address] Care Team Providers Care Desktop Analyst Name Role Phone ReinaldoDrea ADELINA Primary Care Provider [phone] Encounter Details Date Type Department Care Team (Late st Contact Info) Description 09/24/2021 Dental Interim Note [facility] [address] [place] [phone] RuizCaraElvira Y [address] [place] [address] Social History Tobacco Use Types Packs/Day Years [...] Description 12/13/2024 9:00 AM EDT Office Visit [facility] [address] [place] [address] Charlette [address] [place] [address] documented as of this encounter Visit Diagnoses Not on filedocumented in this encounter Care Teams Desktop Analyst Relationship Specialty Start Date End Date Drea Najera DMD [address] [place] [address] PCP - General 06/27/20 03/05/24 documented as of this encounter
--- OUTSIDE RECORDS SUMMARY | 2024-07-16 17:15 | XMS_ITS | Patient Health Record ---
Author Organization [facility] Address [address] [place] [phone] Care Team Providers Care Employment Law Attorney Name Role Phone SHILPA GATICA Primary Care Provider Tamy Akers Unavailable [phone] Allergies Allergen (clinical drug ingredient) Drug/Non Drug Allergy documented on EMR Reaction Allergy Type Onset Date Status acetaminophen / oxycodone Percocet Nausea Drug Allergy Active Reason For Referral No Information Medications Medication SIG (Take, Route, Frequency, Duration) Notes Start Date End Date Status Vitamin A 01493 UNIT 1 capsule with food or milk Orally Once a day Active Vitamin K Active [place] 3 1000 MG 1 capsule Orally Twi [...] Risk Notes Problem Excessive and frequent menstruation (475286730) Excessive and frequent menstruation with regular cycle (N92.0) Active confirmed Problem Abnormal vaginal bleeding (590305574) Other specified abnormal uterine and vaginal bleeding (N93.8) Active confirmed Plan Of Treatment Pending Test Test Name Order Date PT AND PTT 03/17/2016 COMPLETE CBC WITH DIFF 03/17/2016 Insurance Providers Payer Name Payer Address Payer Phone Subscriber Number Group Number Insured Name Patient Relationship to Insured Coverage Start Date Coverage End Date MEDICARE [address] [place], [place] [id number] EDER PITTMAN Self - patient is the [...]
--- OUTSIDE RECORDS SUMMARY | 2024-07-16 17:15 | XMS_ITS | Clinical Summary ---
Author Organization [facility] Address [address] [place] [address] Care Team Providers Care Rehabilitation Liaison Name Role Phone Unavailable Primary Care Provider [...] Description 06/14/2024 9:00 AM EST Office Visit [facility] [address] [place] [phone] Charlette Martinez Encounter for dental examination (Primary [...] Description 12/13/2024 9:00 AM EDT Office Visit [facility] [address] [place] [phone] Charlette [address] [place] [address] Health Maintenance Due Date Last Done Comments Anxiety Screening 1965 Dental FMX/Pano 1965 Diabetes Screening 1965 HPV [...] 07/22/2012 Imm-Zoster, Recombinant (1 of 2) 07/22/2017 [id number] ( season) 2023 Imm-Influenza (#1) 2023 Alcohol [...]
== END 2024-07-16 16:07 | disposition home or self-care (01) ==
LOC: HO.HMCH 15:16
PROVIDERS: PCP Internal Medicine; Visit Provider Internal Medicine
DX: Z00.00 Encounter for general adult medical examination without abnormal findings (principal); E11.65 Type 2 diabetes mellitus with hyperglycemia; D58.2 Other hemoglobinopathies; F33.0 Major depressive disorder, recurrent, mild

== ENCOUNTER → 2024-07-16 15:16 | Outpatient (BNVA) | payer MEDICARE, MEDICAID, SELFPAY | PROVIDERS: PCP Internal Medicine; Visit Provider Internal Medicine | DX: Z00.00 Encounter for general adult medical examination without abnormal findings (principal); E11.65 Type 2 diabetes mellitus with hyperglycemia; D58.2 Other hemoglobinopathies; F33.0 Major depressive disorder, recurrent, mild; E55.9 Vitamin D deficiency, unspecified; E78.5 Hyperlipidemia, unspecified; R80.9 Proteinuria, unspecified | CPT/HCPCS: 83036; 96127 ==

== ENCOUNTER 2024-07-30 08:52 | Outpatient (AMB) | payer MEDICARE, MEDICAID, SELFPAY ==
--- NOTE | 2024-07-30 09:08 | MHC.AMNUTRGE ---
VS Expanded 07/30/24 09:09 07/30/24 09:23 Height 5 ft 3 in 5 ft 3 in Weight 193 lb 5.526 oz 193 lb BMI 34.2 34.2 Intake Visit Reasons: T2DM Allergies acetaminophen [Percocet] Allergy (Intermediate, Verified 07/16/24 15:43) vomiting nabumetone Allergy (Intermediate, Verified 07/16/24 15:43) shortness of breath oxycodone [Percocet] Allergy (Intermediate, Verified 07/16/24 15:43) vomiting metformin Adverse Reaction (Intermediate, Uncoded 07/16/24 15:43) abdominal pain, diarrhea Nutrition Presentation Details: Pt presents for MNT for T2DM Pt reports working on dietary modifications food frequency fruits: 2/day fish 1-2x/w dairy - choosing almond milk, cheese substitute water : 16-24 oz /d , 12 oz green tea or chamomile starches : working on choosing whole grain foods physical activity -- etoh/smoking-- BS Monitoring Most Recent Diabetes Results: Microalb/Creat Ratio 6.8 ug/mg cr (<30) 06/28/24 Cholesterol 258 mg/dL (<200) H 07/12/24 HDL Cholesterol 50 mg/dL (>40) 07/12/24 Triglycerides 188 mg/dL (<150) H 07/12/24 Creatinine 0.62 mg/dL (0.5-1.4) 07/12/24 Blood Urea Nitrogen 12 mg/dL (9-16) 07/12/24 Sodium 142 mmol/L (135-145) 07/12/24 Potassium 3.3 mmol/L (3.3-5.1) 07/12/24 Chloride 104 mmol/L (96-108) 07/12/24 Carbon Dioxide 31 mmol/L (22-29) H 07/12/24 Calcium 10.0 mg/dL (8.4-10.2) 07/12/24 AST 41 U/L (5-31) H 07/12/24 ALT 62 U/L (0-31) H 07/12/24 Total Protein 7.9 g/dL (6.5-8.0) 07/12/24 Albumin 4.3 g/dL (3.5-5.0) 07/12/24 KUH-Bmxdfgw-Ca.Jeor Equation Height: 5 ft 3 in Weight: 193 lb Resting Metabolic Rate: 1433.24 Calculated Activity Level: Sedentary Calories Needed to Maintain Weight: 1719.89 Diagnosis Nutrition problem #1: food nutri know defi As related to (etiology) #1: diagnosis As evidenced by (sign/symptom) #1: knowledge deficit of diet [facility] Medical History Impaired glucose tolerance Mild recurrent major depression Class 2 obesity with body mass index (BMI) of 38.0 to 38.9 in adult Leg pain, bilateral Left wrist pain Left shoulder pain Left elbow pain Swollen ankles Right knee pain Hypovitaminosis D Essential hypertension Surgical History History of hysteroscopy History of laparoscopic cholecystectomy Family History Father Medical history unknown Mother Diabetes Hypertension Chronic mental illness Mental health disorder Maternal Grandmother Throat cancer Maternal Aunt Chronic mental illness Mental health disorder Family/Other Chronic mental illness Mental health disorder Social History Housing: House Alcohol intake: current Alcohol intake frequency: holidays/special occasions only Patient Tobacco Use Status: Never used Tobacco e-Cigarette/Vaping Use: Never Used Second Hand Smoke Exposure: No service: No Current occupational status: disabled Cognitive needs: No Hearing needs: No Vision needs: No Assessment & Plan Assessment & Plan (1) Diabetes mellitus: Code(s): E11.9 - Type 2 diabetes mellitus without complications Category: Medical Qualifiers: Diabetes mellitus complication status: with hyperglycemia Diabetes mellitus long term care social worker insulin use: without intermediate use Diabetes mellitus type: type 2 Qualified Code(s): E11.65 - Type 2 diabetes mellitus with hyperglycemia Plan: Wt: 88 Kg ( 08/10 ) Est kcal needs as per MSJ: 1700 (40% carb, 30% protein/fat) Est fluid needs as per 25-30 ml/d: 2600 Est prot per day as per 1 g/kg bw: 90 Recommend fiber intake : 8-10 g per day and gradually increase to 25-28 g per day for women and 35-38 g for men or as tolerated Recommend sodium intake per day : less than 1500 mg less than 2000 mg Educated patient on: ( R = reviewed V = verbalizes understanding N/R = needs review N/A = not applicable Food sources of carbohydrate, adequate serving sizes and its role in various health conditions: R V Differences between complex carbohydrates a simple carbohydrates, role of fiber in diet: R V Lean protein sources of foods: R V Differences between types of fats and role in diet (mono on saturated fat fatty acids, saturated fatty acids, trans fats): R Food sources of sodium in salt and healthy modifications for heart health in kidney health: R V R/V Vitamins and minerals: R V N/R Healthy plate method concept: R V N/R Physical activity: Benefits a precaution: R Hypoglycemia protocol (rule of 15): R V N/R Dietary prevention of Hyperglycemia: R Patient Instructions: Continue working on watching portion sizes, less than 60 g carb at meal, choosing whole grain foods following healthyp alte method Try lactose free milk/lactaid dairy products and lactose free alternatives Coding Level of Care Code Nutr Indiv Intake (60897) Diagnoses Type 2 diabetes mellitus with hyperglycemia, without long-term current use of insulin E11.65 Diabetes mellitus complication status: with hyperglycemia Diabetes mellitus intermediate insulin use: without intermediate use Diabetes mellitus type: type 2 Time Spent (min) 30
[2024-07-30 09:09] VITALS: BMI 34.2
--- OUTSIDE RECORDS SUMMARY | 2024-07-30 09:39 | XMS_ITS | Patient Health Record ---
Author Organization [facility] Address [address] [place] [id number] Care Team Providers Care Mold Engraver Name Role Phone SHILPA GATICA Primary Care Provider Tamy Akers Unavailable [phone] Allergies Allergen (clinical drug ingredient) Drug/Non Drug Allergy documented on EMR Reaction Allergy Type Onset Date Status acetaminophen / oxycodone Percocet Nausea Drug Allergy Active Reason For Referral No Information Medications Medication SIG (Take, Route, Frequency, Duration) Notes Start Date End Date Status Vitamin A 70382 UNIT 1 capsule with food or milk Orally Once a day Active Vitamin K Active Philo 3 1000 MG 1 capsule Orally Twi [...] Risk Notes Problem Excessive and frequent menstruation (765933040) Excessive and frequent menstruation with regular cycle (N92.0) Active confirmed Problem Abnormal vaginal bleeding (850495630) Other specified abnormal uterine and vaginal bleeding (N93.8) Active confirmed Plan Of Treatment Pending Test Test Name Order Date PT AND PTT 03/17/2016 COMPLETE CBC WITH DIFF 03/17/2016 Insurance Providers Payer Name Payer Address Payer Phone Subscriber Number Group Number Insured Name Patient Relationship to Insured Coverage Start Date Coverage End Date MEDICARE [address] [place], [place] [id number] [employer]ER [employer] Self - patient is the [...]
--- OUTSIDE RECORDS SUMMARY | 2024-07-30 09:39 | XMS_ITS | Clinical Summary ---
Author Organization [facility] Address [address] [place] [address] Care Team Providers Care Coating Machine Feeder Name Role Phone Unavailable Primary Care Provider [...] Description 06/14/2024 9:00 AM EST Office Visit [facility] [address] [place] [phone] Charlette Martinez Encounter for dental examination (Primary [...] Description 12/13/2024 9:00 AM EDT Office Visit [facility] [address] [place] [phone] Charlette Martinez [address] [place] [address] Health Maintenance Due Date Last Done Comments [...] (Mammogram) 2007 CT Colonography 07/22/2012 Colonoscopy 07/22/2012 Flexible Sigmoidoscopy 07/22/2012 Imm-Zoster, Recombinant (1 of 2) 07/22/2017 [id number] ( - season) 2023 Imm-Influenza (#1) 2023 Alcohol and Drug Screen 04/18/2024 Depression Annual Screen 04/18/2024 FIT/gFOBT 07/13/2024 07/14/2023 Hypertension Screening (#1) 06/14/2025 Tobacco Screening 06/14/2025 [...]
--- OUTSIDE RECORDS SUMMARY | 2024-07-30 09:39 | XMS_ITS | Encounter Summary ---
Author Organization [facility] Address [address] [place] [address] Care Team Providers Care Tile Molder Name Role Phone ReinaldoDrea ADELINA Primary Care Provider Encounter Details Date Type Department Care Team (Late st Contact Info) Description 09/24/2021 Dental Interim Note [facility] [address] [place] [phone] RuizCaraElvira Y [address] [place] [address] Social History Tobacco Use Types Packs/Day Years [...] Description 12/13/2024 9:00 AM EDT Office Visit [facility] [address] [place] [address] Charlette Martinez [address] [place] [address] documented as of this encounter Visit Diagnoses Not on filedocumented in this encounter Care Teams Tile Molder Relationship Specialty Start Date End Date Drea Najera DMD [address] [place] [address] PCP - General 06/27/20 03/05/24 documented as of this encounter
[2024-08-10 23:07] VITALS: BMI 34.2
== END 2024-07-30 10:14 | disposition home or self-care (01) ==
LOC: HO.ENCR 08:53
PROVIDERS: PCP Internal Medicine; Visit Provider Dietitian, Registered
DX: E11.65 Type 2 diabetes mellitus with hyperglycemia (principal)

== ENCOUNTER → 2024-07-30 08:52 | Outpatient (BNVA) | payer MEDICARE, MEDICAID, SELFPAY | PROVIDERS: PCP Internal Medicine; Visit Provider Dietitian, Registered | DX: E11.65 Type 2 diabetes mellitus with hyperglycemia (principal) | CPT/HCPCS: 97802 ==

== ENCOUNTER → 2024-10-10 09:17 | Outpatient (BNVA) | payer MEDICARE, MEDICAID, SELFPAY | PROVIDERS: PCP Internal Medicine; Visit Provider Internal Medicine | DX: Z13.89 Encounter for screening for other disorder (principal) ==

== ENCOUNTER 2024-10-25 06:30 | Outpatient (REF) | payer MEDICARE, MEDICAID, SELFPAY ==
--- OUTSIDE RECORDS SUMMARY | 2023-10-17 06:00 | XMS_ITS ---
Author Organization [employer] [facility] Address [address] [employer] 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 :1965 A ge:58 Y S ex:Female Date:10/17/2023 Address:[address] [place] [address] Pcp:SHILPA FRAUSTO Subjective: * Chief Complaints: * 1 . Annual CIRCUS ROUSTABOUT Physical. * Medical History: Objective: * Vitals: Assessment: Plan: * Treatment: * Images: Billing Information: * Visit Code: * Procedure Codes: * Electronic signature of Nisha Castillo MD on 10/25/2024 at 06:32 AM EDT Sign off status: Pending * Appointment Provider: Quang Castillo M.D. Date: 10/17/2023 Generated for Printi ng/Faxing/eTransmitting on: 10/25/2024 06:32 AM EDT
--- OUTSIDE RECORDS SUMMARY | 2024-10-25 06:33 | XMS_ITS | Encounter Summary ---
Author Organization [facility] Address [address] [place] [address] Care Team Providers Care Presser Automatic Name Role Phone ReinaldoDrea ADELINA Primary Care Provider [phone] Encounter Details Date Type Department Care Team (Late st Contact Info) Description 09/24/2021 Dental Interim Note [facility] [address] [place] [phone] RuizCaraElvira Y [address] [place] [address] Social History Tobacco Use Types Packs/Day Years [...] Care Team (Late st Contact Info) Description 11/21/2024 9:00 AM EDT Office Visit [facility] [address] [place] [phone] Jana Perez, DDS [address] [place], [place] [phone] 12/13/2024 9:00 AM EDT Office Visit [facility] [address] [place] [phone] Charlette Martinez [address] [place] [address] documented as of this encounter Visit Diagnoses Not on filedocumented in this encounter Care Teams Presser Automatic Relationship Specialty Start Date End Date Drea Najera DMD [address] [place] [address] PCP - General 06/27/20 03/05/24 documented as of this encounter
[2024-10-25 07:42] LABS: Hematocrit 42.7 % (37.0-47.0); Hemoglobin 15.2 g/dl (12.0-16.0); Mean Corpuscular HGB Conc 35.6 g/dl (31.0-35.0); Mean Corpuscular Hemoglobin 32.3 pg (27.0-33.0); Mean Corpuscular Volume 90.7 fL (80.0-98.0); NRBC Abs Auto 0.000 X10*3/uL (0.0-0.012); NRBC Pct Auto 0.0 /100WBC (0.0-0.2); Platelet Count 223 X10*3/uL (160-400); Red Blood Count 4.71 X10*6/uL (4.20-5.50); White Blood Count 6.5 X10*3/uL (4.8-10.8)
[2024-10-25 07:46] LABS: INTERNATIONAL NORM RATIO 1.0 (0.9-1.1); Prothrombin Time 11.0 SEC (10.9-12.4)
[2024-10-25 08:10] LABS: Alanine Aminotransferase 55 U/L (0-31); Albumin Level 4.4 g/dL (3.5-5.0); Alkaline Phosphatase 92 U/L (39-117); Anion Gap 10 (12-20); Aspartate Amino Transferase 41 U/L (5-31); Blood Urea Nitrogen 13 mg/dL (9-16); Calcium 9.7 mg/dL (8.4-10.2); Carbon Dioxide 30 mmol/L (22-29); Chloride 104 mmol/L (96-108); Estimated Glomerular Filt Rate > 60; Potassium 3.3 mmol/L (3.3-5.1); Sodium 141 mmol/L (135-145); Total Protein 7.7 g/dL (6.5-8.0)
== END 2024-10-25 06:31 | disposition home or self-care (01) ==
LOC: HO.LAB 06:30
PROVIDERS: PCP Internal Medicine; Visit Provider Internal Medicine
DX: R74.01 Elevation of levels of liver transaminase levels (principal)
CPT/HCPCS: 36415; 80053; 85027; 85610

== ENCOUNTER → 2024-10-29 08:20 | Outpatient (BNV) | payer MEDICARE, MEDICAID, SELFPAY | PROVIDERS: PCP Internal Medicine; Visit Provider Internal Medicine Medical Oncology | DX: R79.0 Abnormal level of blood mineral (principal) | CPT/HCPCS: 99214 ==

== ENCOUNTER 2024-12-20 11:06 | Outpatient (AMB) | payer MEDICARE, MEDICAID, SELFPAY ==
--- OUTSIDE RECORDS SUMMARY | 2023-10-17 06:00 | XMS_ITS ---
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 :1965 A ge:58 Y S ex:Female Date:10/17/2023 Address:[address] [place] [address] Pcp:SHILPA FRAUSTO Subjective: * Chief Complaints: * 1 . 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 * Medical History: Objective: * Vitals: Assessment: Plan: * Treatment: * Images: Billing Information: * Visit Code: * Procedure Codes: * Electronic signature of Nisha Castillo MD on 12/20/2024 at 12:44 PM EDT Sign off status: Pending * Appointment Provider: Quang Castillo M.D. Date: 10/17/2023 Generated for Printi ng/Faxing/eTransmitting on: 0 12/20/2024 12:44 PM EDT
--- NOTE | 2024-12-20 11:09 | MHC.OFFVIS ---
Vital Signs 12/20/24 11:11 Height 5 ft 3 in Weight 197 lb 12.074 oz BMI 35.0 BP 130/80 Blood Pressure Location Rt brachial Position Sitting Pulse 66 Pulse Source Pulse Oximeter Pulse Oximetry (%) 97 Oxygen Delivery Method Room Air Intake Visit Reasons: abnormal labs Intake Note: Patient presents today for abnormal labs. Patient states that she has pain everyday. Accompanied by: Self / Same As Patient Allergies acetaminophen (Percocet) Allergy (Intermediate, Verified 12/20/24 11:10) vomiting nabumetone Allergy (Intermediate, Verified 12/20/24 11:10) shortness of breath oxycodone (Percocet) Allergy (Intermediate, Verified 12/20/24 11:10) vomiting metformin Adverse Reaction (Intermediate, Uncoded 10/29/24 08:44) abdominal pain, diarrhea HPI HPI abnormal labs: Details: SHILPA 1:160. She feels hot then abruptly cold within the past 6 months. It may occur once or twice a month and last a few days. LMP 2 years ago. She has not measured her temperature. She wakes up in pain in hips, knees and ankles. SHe feels hips, knees and ankles are swollen. She is unable to sleep on left side for a year. She has morning stiffness in hands. SHe has increase stiffness with manual work like scrubbing the next day lasting longer in the day. She has new nodules on DIPs bilateral hands. Rash on feet and fingers. Feet are dry. Hx of exzema. +dry mouth. She is constantly chewing gum. Mild Dry eyes. Wears contacts. She has floaters in her eyes. She does not remember the diagnosis that she was given recently. Denies dyspnea, pleurisy, oral ulcers, migraines, photosensitivity, urinary symptoms, raynaud's syndrome. Denies miscarriages or DVTs or PE. Maternal aunts have arthritis but she does not know what kind. 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 Occasionally drank alcohol before liver abnormalities. Denies alcohol use at this time. She denies smoking or recreational drug use. [facility] Medical History Impaired glucose tolerance Mild recurrent major depression Class 2 obesity with body mass index (BMI) of 38.0 to 38.9 in adult Leg pain, bilateral Left wrist pain Left shoulder pain Left elbow pain Swollen ankles Right knee pain Hypovitaminosis D Essential hypertension Surgical History History of hysteroscopy History of laparoscopic cholecystectomy Family History Father Medical history unknown Mother Diabetes Hypertension Chronic mental illness Mental health disorder Maternal Grandmother Throat cancer Maternal Aunt Chronic mental illness Mental health disorder Family/Other Chronic mental illness Mental health disorder Social History Household Members: Spouse Housing: House Are you a primary care manager to a significant other at home: No Do you presently have visiting nurse or other home services: No Alcohol intake: current Alcohol intake frequency: holidays/special occasions only Patient Tobacco Use Status: Never used Tobacco e-Cigarette/Vaping Use: Never Used Second Hand Smoke Exposure: No service: No Current occupational status: disabled Cognitive needs: No Hearing needs: No Vision needs: No Physical Exam Vital Signs: Last Vital Signs Pulse 66 12/20/24 11:11 BP 130/80 12/20/24 11:11 Pulse Ox 97 12/20/24 11:11 Oxygen Delivery Method Room Air 12/20/24 11:11 BMI result Body Mass Index 35.0 Const Other: General: Comfortable CVS: RRR Respiratory: clear to auscultation bilaterally. Good respiratory effort Skin: No lesions seen, no discoloration of fingertips or digital ulcers MSK: Heberden nodes present. Tender to palpate DIPJ on right hand. Weak roller helper. No synovitis. Normal range of motion of upper extremities. Tender to palpate bilateral trochanteric bursae. Tender bilateral knees along joint line and infrapatellar region. Bilateral ankle tenderness. No MTP tenderness. Normal range of motion of lower extremities. Tender to palpate lower lumbar spinous process and paraspinal muscles. Normal lumbar flexion. Assessment & Plan Assessment & Plan (1) SHILPA positive: Comment: Low titer positive SHILPA 1:160 with sicca symptoms. She also wears contacts. Labs in expanse did not reveal cytopenias with normal kidney function. We discussed next steps in evaluation for Sjogren syndrome. She does not have any signs or symptoms suggestive of any other connective tissue disease. Code(s): R76.8 - Other specified abnormal immunological findings in serum Category: Medical Plan: SSA/SSB ordered (2) Hot flashes: Code(s): R23.2 - Flushing Category: Medical Plan: TSH ordered to rule out thyroid disease (3) Osteoarthritis of hands, bilateral: Comment: Clinical diagnosis. We discussed conservative management. Code(s): M19.041 - Primary osteoarthritis, right hand; M19.042 - Primary osteoarthritis, left hand Category: Medical Qualifiers: Osteoarthritis type: primary Qualified Code(s): M19.041 - Primary osteoarthritis, right hand; M19.042 - Primary osteoarthritis, left hand Plan: Bilateral hand x-rays ordered OT ordered to improve hand strength Return to clinic in 3-4 months (4) Low back pain: Comment: She has myofascial strain contributing to her pain. On exam she has localized tenderness of spinous process of lumbar spine. I will assess for spinal pathology with an x-ray. We discussed conservative management. Code(s): M54.50 - Low back pain, unspecified Category: Medical Qualifiers: Chronicity: chronic Back pain laterality: bilateral Sciatica presence: without sciatica Qualified Code(s): M54.50 - Low back pain, unspecified; G89.29 - Other chronic pain Plan: PT ordered with myofascial release, TENs unit trial She will try icing instead of applying heat to back Return to clinic in 3-4 months (5) Greater trochanteric bursitis of both hips: Code(s): M70.61 - Trochanteric bursitis, right hip; M70.62 - Trochanteric bursitis, left hip Category: Medical Plan: PT ordered Apply ice to localized area PRN pain Return to clinic in 3-4 months (6) Bilateral knee pain: Comment: Chronic. Code(s): M25.561 - Pain in right knee; M25.562 - Pain in left knee Category: Medical Qualifiers: Chronicity: chronic Qualified Code(s): M25.561 - Pain in right knee; M25.562 - Pain in left knee; G89.29 - Other chronic pain Plan: X-rays of bilateral knees ordered PT ordered for lower extremity strengthening Return to clinic in 3-4 months Orders: Orders OT Evaluation and Treatment Today M19.041 - Primary osteoarthritis, right hand, M19.042 - Primary osteoarthritis, left hand XR Knee Calvin 3V Today M25.561 - Pain in right knee, M25.562 - Pain in left knee XR lumbar spine 2-3V Today M54.50 - Low back pain, unspecified TSH reflex Free T4 Today R23.2 - Flushing PT Evaluation and Treatment Today M25.561 - Pain in right knee, M25.562 - Pain in left knee, M54.50 - Low back pain, unspecified, M70.61 - Trochanteric bursitis, right hip, M70.62 - Trochanteric bursitis, left hip Sjogren's Antibodies Today M35.00 - Sjogren syndrome, unspecified, R76.8 - Other specified abnormal immunological findings in serum XR Hand Bilat min 3v Today M19.041 - Primary osteoarthritis, right hand, M19.042 - Primary osteoarthritis, left hand Coding Level of Care Code New Pt Level 4 (17443) Diagnoses SHILPA positive R76.8 Hot flashes R23.2 Primary osteoarthritis of both hands M19.041; M19.042 Osteoarthritis type: primary Chronic bilateral low back pain without sciatica M54.50; G89.29 Chronicity: chronic Back pain laterality: bilateral Sciatica presence: without sciatica Greater trochanteric bursitis of both hips M70.61; M70.62 Chronic pain of both knees M25.561; M25.562; G89.29 Chronicity: chronic
[2024-12-20 11:11] VITALS: BP 130/80; PULSE 66; O2SAT 97; BMI 35.0
--- OUTSIDE RECORDS SUMMARY | 2024-12-20 12:44 | XMS_ITS | Patient Health Record ---
Author Organization [facility] Address [address] [place] [phone] Care Team Providers Care Md Senior Research Scientist Name Role Phone SHILPA GATICA Primary Care Provider Tamy Akers Unavailable [phone] Allergies Allergen (clinical drug ingredient) Drug/Non Drug Allergy documented on EMR Reaction Allergy Type Onset Date Status acetaminophen / oxycodone Percocet Nausea Drug Allergy Active Reason For Referral No Information Medications Medication SIG (Take, Route, Frequency, Duration) Notes Start Date End Date Status Vitamin A 99707 UNIT 1 capsule with food or milk Orally Once a day Active Vitamin K Active Chalmette 3 1000 MG 1 capsule Orally Twi ce a day Active Turmeric 500 MG 600mg Orally daily Active Atenolol-Chlorthalidone 50-25 MG 1 tablet Orally Once a day Active TRISH-e 200 MG 1/2 tab Orally daily Active Vicodin 5-300 MG 1 tablet as needed Orally every 6 hrs PRN; Duration: 7 days 04/27/2016 Not-Taking Anaprox DS 550 MG 1 tablet Orally Twic e a day NEEDED; Duration: 90 days 04/27/2016 Not-Taking Multi-Vitamin Daily - [...] Risk Notes Problem Excessive and frequent menstruation (776125567) Excessive and frequent menstruation with regular cycle (N92.0) Active confirmed Problem Abnormal vaginal bleeding (546554928) Other specified abnormal uterine and vaginal bleeding (N93.8) Active confirmed Plan Of Treatment Pending Test Test Name Order Date PT AND PTT 03/17/2016 COMPLETE CBC WITH DIFF 03/17/2016 Insurance Providers Payer Name Payer Address Payer Phone Subscriber Number Group Number Insured Name Patient Relationship to Insured Coverage Start Date Coverage End Date MEDICARE [address] [place], [place] [id number] [employer] Self - patient is the [...]
== END 2024-12-20 12:00 | disposition home or self-care (01) ==
LOC: HO.RHES 11:08
PROVIDERS: PCP Internal Medicine; Visit Provider Internal Medicine Rheumatology
DX: R76.8 Other specified abnormal immunological findings in serum (principal); R23.2 Flushing; M19.041 Primary osteoarthritis, right hand; M19.042 Primary osteoarthritis, left hand; M54.50 Low back pain, unspecified; G89.29 Other chronic pain; M70.61 Trochanteric bursitis, right hip; M70.62 Trochanteric bursitis, left hip; M25.561 Pain in right knee; M25.562 Pain in left knee
CPT/HCPCS: 99204

== ENCOUNTER → 2024-12-20 11:06 | Outpatient (BNVA) | payer MEDICARE, MEDICAID, SELFPAY | PROVIDERS: PCP Internal Medicine; Visit Provider Internal Medicine Rheumatology | DX: R23.2 Flushing (principal); R76.8 Other specified abnormal immunological findings in serum; M19.041 Primary osteoarthritis, right hand; M19.042 Primary osteoarthritis, left hand; M54.50 Low back pain, unspecified; M70.61 Trochanteric bursitis, right hip; M70.62 Trochanteric bursitis, left hip; M25.561 Pain in right knee; M25.562 Pain in left knee; G89.29 Other chronic pain | CPT/HCPCS: 99202 ==

== ENCOUNTER 2024-12-24 10:05 | Outpatient (AMB) | payer MEDICARE, MEDICAID, SELFPAY ==
--- OUTSIDE RECORDS SUMMARY | 2023-10-17 06:00 | XMS_ITS ---
Author Organization [employer] 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 [address] [address] [place] [phone] 10/17/2023 Tamy Castillo Plan Of Treatment No Information Progress Notes * EEDR PITTMANDOB: [birth year] (59 yo F)Acc No.[id number]:10/17/2023 PROGRESS NOTES Patient: EDER VEGA Appointment Provider: Quang Castillo M.D. :1965 A ge:58 Y S ex:Female Date:10/17/2023 Address:[address] [place] [address] Pcp:SHILPA FRAUSTO Subjective: * Chief Complaints: * 1 . 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 * Medical History: Objective: * Vitals: Assessment: Plan: * Treatment: * Images: Billing Information: * Visit Code: * Procedure Codes: * Electronic signature of Nisha Castillo MD on 12/24/2024 at 11:53 AM EDT Sign off status: Pending * Appointment Provider: Quang Castillo M.D. Date: 0 10/17/2023 Generated for Printi ng/Faxing/eTransmitting on: 0 12/24/2024 11:53 AM EDT
[2024-12-24 10:07] VITALS: BP 160/86; PULSE 78; RESP 18; TEMP 36.1; O2SAT 96; BMI 34.7
--- NOTE | 2024-12-24 10:07 | A.OFFPC_ITS ---
Vital Signs 12/24/24 10:07 Height 5 ft 3 in Weight 196 lb BMI 34.7 BP 160/86 H Blood Pressure Location Lt brachial Position Sitting Respiration 18 Pulse 78 Pulse Source Pulse Oximeter Temp 96.9 F Temp Source Temporal Artery Scan Pulse Oximetry (%) 96 Oxygen Delivery Method Room Air Intake Visit Reasons: bp Appliance Installer Required: No Accompanied by: Self / Same As Patient Allergies acetaminophen (Percocet) Allergy (Intermediate, Verified 12/24/24 10:20) vomiting nabumetone Allergy (Intermediate, Verified 12/24/24 10:20) shortness of breath oxycodone (Percocet) Allergy (Intermediate, Verified 12/24/24 10:20) vomiting metformin Adverse Reaction (Intermediate, Uncoded 12/24/24 10:20) abdominal pain, diarrhea Medication List - Last Reconciled 12/24/24 by Nelia Schmitt MD atenolol-chlorthalidone 50-25 mg 1 tab PO DAILY 90 days blood sugar diagnostic (FreeStyle Lite Strips) Use 1 test strip once per day blood-glucose meter (FreeStyle Lite Meter kit) As directed cholecalciferol (vitamin D3) 50,000 units PO QWEEK 90 days lancets (FreeStyle Lancets) As directed once per day lorazepam 0.5 mg PO DAILY PRN Tobacco use date assessed: 12/24/24 Dental Screening Dental Screen Date: 12/24/24 Did you have a dental visit in the last 12 months?: Yes Did you have a dental problem in the last 6 months where you did not have access to dental care?: No Was dental information given to patient?: Patient has dentist HPI HPI Comments History of Present Illness Details The patient is a 59-year-old female presenting with anxiety, depression, and diabetes mellitus. She also has hypertension and blood pressure is elevated today but she has not take her medications yet. The patient reports experiencing anxiety and moderate depression, with a PHQ-9 score of 15, but denies any suicidal ideation. She is currently under the care of a psychiatrist but has not been taking any prescribed medications consistently. The patient has a history of diabetes mellitus, which is currently managed with diet and exercise. Her recent HbA1c level was 5.9%, indicating good glycemic control. The patient also reports a fungal skin infection, for which an antifungal cream has been prescribed. [facility] Medical History Impaired glucose tolerance Mild recurrent major depression Class 2 obesity with body mass index (BMI) of 38.0 to 38.9 in adult Leg pain, bilateral Left wrist pain Left shoulder pain Left elbow pain Swollen ankles Right knee pain Hypovitaminosis D Essential hypertension Surgical History History of hysteroscopy History of laparoscopic cholecystectomy Family History Father Medical history unknown Mother Diabetes Hypertension Chronic mental illness Mental health disorder Maternal Grandmother Throat cancer Maternal Aunt Chronic mental illness Mental health disorder Family/Other Chronic mental illness Mental health disorder Social History Household Members: Spouse Housing: House Are you a primary careers counsellor to a significant other at home: No Do you presently have visiting nurse or other home services: No Alcohol intake: current Alcohol intake frequency: holidays/special occasions only Patient Tobacco Use Status: Never used Tobacco e-Cigarette/Vaping Use: Never Used Second Hand Smoke Exposure: No service: No Current occupational status: disabled Cognitive needs: No Hearing needs: No Vision needs: No Questionnaire PHQ-9 Over the last 2 weeks, how often have you been bothered by any of the following problems? 1. Little interest or pleasure in doing things: more than half the days 2. Feeling down, depressed, or hopeless: more than half the days 3. Trouble falling or staying asleep, or sleeping too much: more than half the days 4. Feeling tired or having little energy: nearly every day 5. Poor appetite or overeating: not at all 6. Feeling bad about yourself - or that you are a failure or have let yourself or your family down: several days 7. Trouble concentrating on things, such as reading the newspaper or watching television: nearly every day 8. Moving or speaking so slowly that other people could have noticed. Or the opposite - being so fidgety or restless that you have been moving around a lot more than usual: more than half the days 9. Thoughts that you would be better off or of hurting yourself in some way: not at all Total score: 15 Depression Screening Interpretation: Positive (no suicidal thoughts) Depression Screening Follow-up: Existing condition, In treatment, Community Mental Health Worker F/U and Follow-up Visit Requested Depression Screening Done: Yes 33941 - PHQ-9 Billing: Yes Source: Developed by Drs. Guanakito Lamar, Rachel Corrales, Feliberto Owusu and colleagues, with an educational rosemary from [employer]. Thrive Questionnaire Date Thrive assessed: 12/24/24 I am a: Patient What is your living situation today?: I have a steady place to live Within the past 12 months, did the food you bought not last and you didn't have the money to get more?: Never true Within the past 12 months, did you worry whether your food would run out before you got money to buy more?: Never true Do you have trouble paying for medicines?: No Do you have trouble getting transportation to medical appointments?: No Do you have trouble paying your heating and electricity bill?: No Do you have trouble taking care of your child, family member or friend?: I ch oose not to answer this question Do you have trouble with day-to-day activities such as bathing, preparing meals, shopping, managing finances, etc.?: I choose not to answer this question Are you currently unemployed and looking for a job?: I choose not to answer this question Are you interested in more education?: I choose not to answer this question Please select the resources that you would like help with: None Currently or been in a relationship where the following occur: No concerns reported THRIVE Score: 0 AUDIT C Alcohol Use Questionnaire (AUDIT-C) 1. How often do you have a drink containing alcohol?: Never Total Score: 0 Score Reviewed/Action Taken: No MARY-7 AMB Questionnaire MARY-7 Date MARY - 7 assessed: 12/24/24 Feeling nervous, anxious, or on edge: 1 = Several days Not being able to stop or control worryin = Several days Worrying too much about different things: 1 = Several days Trouble relaxin = Nearly every day Being so restless that it is hard to sit still: 1 = Several days Becoming easily annoyed or irritable: 1 = Several days Feeling afraid as if something awful might happen: 0 = Not at all Total MARY-7 score (0-4 normal; 5-9 mild; 10-14 moderate; 15-21 severe): 8 Source: Developed by Drs. Guanakito Lamar, Rachel Corrales, Feliberto Owusu and colleagues, with an educational rosemary from [employer]. MARY-7 Assessment Billing MARY-7 Assessment Tool: MARY-7 Assessment 10595 Review of Systems Const All systems reviewed & are unremarkable except as noted in HPI and below Card Denies chest pain at rest, Denies chest pain with activity, Denies edema, Denies irregular heart rhythm, Denies claudication, Denies dyspnea, Denies dyspnea on exertion, Denies orthopnea, Denies paroxysmal nocturnal dyspnea and Denies slow heart rate Resp Denies cough, Denies dyspnea and Denies dyspnea on exertion Physical exam (Primary Care) Vital Signs: Last Vital Signs Temp 96.9 F 12/24/24 10:07 Pulse 78 12/24/24 10:07 Resp 18 12/24/24 10:07 BP 160/86 H 12/24/24 10:07 Pulse Ox 96 12/24/24 10:07 Oxygen Delivery Method Room Air 12/24/24 10:07 BMI result Body Mass Index 34.7 BMI Assessment/Plan discussion: High BMI High, discussed plan: lifestyle, weight reduction, dietary and physical activity Tobacco/Smoking Status: Tobacco use Status Tobacco use date assessed 12/24/24 12/24/24 10:10 Patient Tobacco Use Status Never used Tobacco 12/24/24 10:10 e-Cigarette/Vaping Use Never Used 12/24/24 10:10 PHQ-9: PHQ-9 Score PHQ-9: Total score 15 12/24/24 10:26 Depression Screening Interpretation: Positive (no suicidal thoughts) Depression Screening Follow-up: Existing condition, In treatment, Community Mental Health Worker F/U and Follow-up Visit Requested Thrive Assessment: Date of Thrive Assessment Date Thrive assessed 12/24/24 12/24/24 10:10 Currently or been in a relationship where the following occur: No concerns reported Resp Effort & Inspection: normal respiratory effort Auscultation: clear to auscultation bilaterally Cardio Jugular venous distension: no JVD Rate: regular rate Rhythm: regular rhythm Heart sounds: S1 normal heart sound present and S2 normal heart sound present Extrem General: Yes full ROM Coding Level of Care Code Est Pt Level 4 (15562) Complex EM visit Add On G2211 Diagnoses Essential hypertension I10 Hyperlipidemia LDL goal <70 E78.5 Type 2 diabetes mellitus with hyperglycemia, without long-term current use of insulin E11.65 Diabetes mellitus type: type 2 Diabetes mellitus fpc insulin use: without manager intermediate use Diabetes mellitus complication status: with hyperglycemia Mild recurrent major depression F33.0 Additional Codes MARY-7 Assessment Billing - MARY-7 Assessment Tool: MARY-7 Assessment 48698 ([id number]) PHQ-9 - 05319 - PHQ-9 Billing: Yes ([id number]) Time Spent (min) 22 Assessment & Plan Assessment & Plan (1) Essential hypertension: Code(s): I10 - Essential (primary) hypertension Category: Medical (2) Hyperlipidemia LDL goal <70: Code(s): E78.5 - Hyperlipidemia, unspecified Category: Medical (3) Diabetes mellitus: Code(s): E11.9 - Type 2 diabetes mellitus without complications Category: Medical Qualifiers: Diabetes mellitus type: type 2 Diabetes mellitus manager intermediate insulin use: without fpc use Diabetes mellitus complication status: with hyperglycemia Qualified Code(s): E11.65 - Type 2 diabetes mellitus with hyperglycemia (4) Mild recurrent major depression: Code(s): F33.0 - Major depressive disorder, recurrent, mild Category: Medical Plan Plan Patient was informed and verbally consented to the use of an ambient scribe for clinic note documentation during this visit. 1. Anxiety disorder, unspecified F41.9 The patient is advised to continue taking medication as prescribed for anxiety management. Further evaluation of vitamin levels and thyroid function is planned to assess for other causes of fatigue. 2. Depression, unspecified F32.A The patient is encouraged to maintain regular follow-ups with her psychiatrist for depression management. 3. Type 2 diabetes mellitus without complications E11.9 HCC 19 The patient's diabetes is well-controlled with diet and exercise, and no medication is currently required. 4. Essential (primary) hypertension I10 Recheck BP in 3 weeks. BP goal is less than 130/80. 5. Hyperlipidemia, unspecified E78.5 LDL goal is less than 70. Orders: Orders Microalbumin, Random (w Creat) Today R80.9 - Proteinuria, unspecified Vitamin D 25-OH Total Today E55.9 - Vitamin D deficiency, unspecified Vitamin B12 and Folate Today E53.8 - Deficiency of other specified B group vitamins Complete Blood Count Auto Diff Today D64.9 - Anemia, unspecified Lipid Panel Today E78.5 - Hyperlipidemia, unspecified Comprehensive [place]. Panel Fast Today I10 - Essential (primary) hypertension Thyroid Stimulating Hormone Today E66.9 - Obesity, unspecified, Z68.38 - Body mass index [BMI] 38.0-38.9, adult Medications: New clotrimazole 1% 1 appl topical BID 30 grams 0RF 4 weeks
--- OUTSIDE RECORDS SUMMARY | 2024-12-24 11:53 | XMS_ITS | Patient Health Record ---
Author Organization [facility] Address [address] [place] [id number] Care Team Providers Care Tour Director Name Role Phone SHILPA GATICA Primary Care Provider Tamy Akers Unavailable [phone] Allergies Allergen (clinical drug ingredient) Drug/Non Drug Allergy documented on EMR Reaction Allergy Type Onset Date Status acetaminophen / oxycodone Percocet Nausea Drug Allergy Active Reason For Referral No Information Medications Medication SIG (Take, Route, Frequency, Duration) Notes Start Date End Date Status Vitamin A 51143 UNIT 1 capsule with food or milk Orally Once a day Active Vitamin K Active [place] 3 1000 MG 1 capsule Orally Twi [...] Risk Notes Problem Excessive and frequent menstruation (171371718) Excessive and frequent menstruation with regular cycle (N92.0) Active confirmed Problem Abnormal vaginal bleeding (369384961) Other specified abnormal uterine and vaginal bleeding (N93.8) Active confirmed Plan Of Treatment Pending Test Test Name Order Date PT AND PTT 03/17/2016 COMPLETE CBC WITH DIFF 03/17/2016 Insurance Providers Payer Name Payer Address Payer Phone Subscriber Number Group Number Insured Name Patient Relationship to Insured Coverage Start Date Coverage End Date MEDICARE [address] [place], [place] [id number] [phone] [id number] [place]ER [place] Self - patient is the [...]
== END 2024-12-24 10:35 | disposition home or self-care (01) ==
LOC: HO.HMCH 10:05
PROVIDERS: PCP Internal Medicine; Visit Provider Internal Medicine
DX: I10 Essential (primary) hypertension (principal); E78.5 Hyperlipidemia, unspecified; E11.65 Type 2 diabetes mellitus with hyperglycemia; F33.0 Major depressive disorder, recurrent, mild

== ENCOUNTER → 2024-12-24 10:05 | Outpatient (BNVA) | payer MEDICARE, MEDICAID, SELFPAY | PROVIDERS: PCP Internal Medicine; Visit Provider Internal Medicine | DX: E11.65 Type 2 diabetes mellitus with hyperglycemia (principal); F41.9 Anxiety disorder, unspecified; B49 Unspecified mycosis; I10 Essential (primary) hypertension; E78.5 Hyperlipidemia, unspecified; F33.0 Major depressive disorder, recurrent, mild; E66.9 Obesity, unspecified; D64.9 Anemia, unspecified; E53.8 Deficiency of other specified B group vitamins; E55.9 Vitamin D deficiency, unspecified; R80.9 Proteinuria, unspecified | CPT/HCPCS: 96127; 99212 ==

== ENCOUNTER → 2024-12-25 09:15 | Outpatient (BNV) | payer MEDICARE, MEDICAID, SELFPAY | PROVIDERS: PCP Internal Medicine; Visit Provider Internal Medicine | DX: Z12.31 Encounter for screening mammogram for malignant neoplasm of breast (principal) | CPT/HCPCS: 77063; 77067 ==

== ENCOUNTER 2024-12-25 09:24 | Outpatient (REF) | payer MEDICARE, MEDICAID, SELFPAY ==
--- OUTSIDE RECORDS SUMMARY | 2023-10-17 06:00 | XMS_ITS ---
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 :1965 A ge:58 Y S ex:Female Date:10/17/2023 Address:[address] [place] [address] Pcp:SHILPA FRAUSTO Subjective: * Chief Complaints: * 1 . 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 * Medical History: Objective: * Vitals: Assessment: Plan: * Treatment: * Images: Billing Information: * Visit Code: * Procedure Codes: * Electronic signature of Nisha Castillo MD on 12/25/2024 at 10:50 AM EDT Sign off status: Pending * Appointment Provider: Quang Castillo M.D. Date: 0 10/17/2023 Generated for Printi ng/Faxing/eTransmitting on: 0 12/25/2024 10:50 AM EDT
--- OUTSIDE RECORDS SUMMARY | 2024-12-25 10:50 | XMS_ITS | Encounter Summary ---
Author Organization [facility] Address [address] [place] [address] Care Team Providers Care Major Gifts Manager Name Role Phone ReinaldoDrea ADELINA Primary Care Provider [phone] Encounter Details Date Type Department Care Team (Late st Contact Info) Description 09/24/2021 Dental Interim Note [facility] [address] [place] [phone] RuizCaraElvira Y [address] [place] [address] Social History Tobacco Use Types Packs/Day Years [...] Care Team (Late st Contact Info) Description 01/03/2025 9:40 AM EDT Office Visit [facility] [address] [place] [address] Jana Perez, ERICHS [address] [place] [address] documented as of this encounter Visit Diagnoses Not on filedocumented in this encounter Care Teams Major Gifts Manager Relationship Specialty Start Date End Date Drea Najera DMD [address] [place] [address] PCP - General 06/27/20 03/05/24 documented as of this encounter
--- OUTSIDE RECORDS SUMMARY | 2024-12-25 10:51 | XMS_ITS | Clinical Summary ---
Author Organization [facility] Address [address] [place] [address] Care Team Providers Care Occupational Health And Safety Manager Name Role Phone Unavailable Primary Care Provider [...] Encounters Date Type Department Care Team Description 09/27/2024 11:00 AM EDT Office Visit [facility] [address] [place] [phone] Jana Perez DDS from Last 3 Months Social History Tobacco [...] Description 01/03/2025 9:40 AM EDT Office Visit [facility] [address] [place] [phone] Jana Perez, FLOYD [address] [place] [address] Health Maintenance Due Date Last Done Comments [...] Colonography 07/22/2012 Colonoscopy 07/22/2012 Flexible Sigmoidoscopy 07/22/2012 Imm-Pneumococcal 50+ (1 of 1 - PCV) 07/22/2017 Imm-Zoster, Recombinant (1 of 2) 07/22/2017 Alcohol and Drug Screen 04/18/2024 Depression Annual Screen 04/18/2024 FIT/gFOBT 07/13/2024 07/14/2023, 07/14/2023 [id number] (1 - season) 2024 Imm-Influenza (#1) 2024 Hypertension Screening (#1) 06/14/2025 Dental BW 06/16/2025 06/14/2024, 08/0 09/2023, 11/01/2022, Additional history exists Dental Examination 06/16/2025 06/14/2024, 0 11/22/2023, 04/28/2023, Additional history exists Dental Perio Charting 06/16/2025 06/14/2024 , 11/22/2023, 04/28/2023, Additional history exists Dental Prophy 06/16/2025 06/14/2024, 09/2023, 04/28/2023, Additional history exists Tobacco Screening 09/27/2025 09/27/2024 Colorectal Cancer Screening 07/13/2026 Fecal DNA 07/13/2026 07/14/2023, 07/14/2023 Cervical Ablation/Cold-Knife Conization Discontinued Cervical Cryotherapy Discontinued Colposcopy Discontinued Endometrial Biopsy Discontinued Excision/Leep Discontinued HPV Genotyping Discontinued Vaginal Pap Discontinued Vulvoscopy Discontinued Procedures Procedure Name Priority Date/Time Associated Diagnosis Comments TRY IN Routine 09/27/2024 11:00 AM EDT Partial edentulism, unspecified edentulism class CASE PRESENTATION SUBS DTL & EXTENSIVE TX PLN Routine 09/27/2024 11:00 AM EDT Partial edentulism, unspecified edentulism class COMP PERIODONTAL EVALUATION - NEW/EST PATIENT Routine 06/14/2024 9:00 AM EST Encounter for dental examination BITEWINGS - FOUR RADIOGRAPHIC IMAGES Routine 06/14/2024 9:00 AM EST Encounter for dental examination PROPHYLAXIS - ADULT Routine 06/14/2024 9 :00 AM EST Encounter for dental examination PERIODIC ORAL EVALUATION ESTABLISHED PATIENT Routine 06/14/2024 9:00 AM EST Encounter for dental examination from Last 3 Months or Most Recently Relevant to Health Maintenance Insurance HE[employer]AF[employer]Y NET DENTAL MEDICAID DENTAL
--- OUTSIDE RECORDS SUMMARY | 2024-12-25 10:51 | XMS_ITS | Patient Health Record ---
Author Organization [facility] Address [address] [place] [phone] Care Team Providers Care Production Generalist Name Role Phone SHILPA GATICA Primary Care Provider Tamy Akers Unavailable [phone] Allergies Allergen (clinical drug ingredient) Drug/Non Drug Allergy documented on EMR Reaction Allergy Type Onset Date Status acetaminophen / oxycodone Percocet Nausea Drug Allergy Active Reason For Referral No Information Medications Medication SIG (Take, Route, Frequency, Duration) Notes Start Date End Date Status Vitamin A 01538 UNIT 1 capsule with food or milk Orally Once a day Active Vitamin K Active [place] 3 1000 MG 1 capsule Orally Twi [...] Risk Notes Problem Excessive and frequent menstruation (207281761) Excessive and frequent menstruation with regular cycle (N92.0) Active confirmed Problem Abnormal vaginal bleeding (962083144) Other specified abnormal uterine and vaginal bleeding (N93.8) Active confirmed Plan Of Treatment Pending Test Test Name Order Date PT AND PTT 03/17/2016 COMPLETE CBC WITH DIFF 03/17/2016 Insurance Providers Payer Name Payer Address Payer Phone Subscriber Number Group Number Insured Name Patient Relationship to Insured Coverage Start Date Coverage End Date MEDICARE [address] [place], [place] [id number] EDER [place] Self - patient is the [...]
== END 2024-12-25 09:25 | disposition home or self-care (01) ==
LOC: HO.MAMMO 09:24
PROVIDERS: PCP Internal Medicine; Visit Provider Internal Medicine
DX: Z12.31 Encounter for screening mammogram for malignant neoplasm of breast (principal)
CPT/HCPCS: 77063; 77067